=== PATIENT | male | born 1960 | race Caucasian/White ===

== ENCOUNTER 2019-05-21 07:33 | Outpatient (CLI) | payer OTHER, SELFPAY ==
--- NOTE | 2019-05-21 07:44 | EST_ITS ---
Patient Info Name: Pratik Alvarez Age: 58 years : 1960 Gender: Male Ht: 72 in Wt: 168 lbs BSA: 1.97 m2 Exam Date: 05/21/2019 8:33 AM Exam Location: [facility] Stress Patient Status: Outpatient Admit Date: 05/21/2019 Staff Ordering Physician: Scott Patel DO Attending Provider: Scott Patel DO Exercise Technologist: Emy Cason RDCS Exercise Physician: Scott Patel DO Exam Type: CA stress test treadmill Study Info Indications R06.09 - Other forms of dyspnea A treadmill exercise stress test was performed. Summary 1. 1. Negative Joe exercise stress test for ischemic ST changes by ECG criteria. However, he achieved only 76% MPHR for age group which reduces sensitivity of the test. 2. 2. Good functional capacity, achieving 12 METs of workload. 3. 3. Mild chronotropic incompetence, achieving maximum HR of 122 bpm. 4. 4. Appropriate HR recovery at 1 minute post exercise. 5. 5. No imaging with stress testing. 6. 6. Patient informed of the above results. Protocol: Joe Stress ECG Details Stage: REST Duration (min): 1 min : 2 sec Speed (mph): 0.0 Grade (%): 0 HR (bpm): 62 SBP (mmHg): 132 DBP (mmHg): 88 METS: --- Stage: REST Duration (min): 5 min : 33 sec Speed (mph): 0.0 Grade (%): 0 HR (bpm): 67 SBP (mmHg): 132 DBP (mmHg): 88 METS: --- Stage: STAGE 1 Duration (min): 1 min : 0 sec Speed (mph): 1.7 Grade (%): 10 HR (bpm): 89 SBP (mmHg): 132 DBP (mmHg): 88 METS: --- Stage: STAGE 1 Duration (min): 2 min : 0 sec Speed (mph): 1.7 Grade (%): 10 HR (bpm): 97 SBP (mmHg): 132 DBP (mmHg): 88 METS: --- Stage: STAGE 1 Duration (min): 3 min : 0 sec Speed (mph): 1.7 Grade (%): 10 HR (bpm): 95 SBP (mmHg): 174 DBP (mmHg): 83 METS: --- Stage: STAGE 2 Duration (min): 1 min : 0 sec Speed (mph): 2.5 Grade (%): 12 HR (bpm): 100 SBP (mmHg): 174 DBP (mmHg): 83 METS: --- Stage: STAGE 2 Duration (min): 2 min : 0 sec Speed (mph): 2.5 Grade (%): 12 HR (bpm): 102 SBP (mmHg): 166 DBP (mmHg): 86 METS: --- Stage: STAGE 2 Duration (min): 3 min : 0 sec Speed (mph): 2.5 Grade (%): 12 HR (bpm): 103 SBP (mmHg): 166 DBP (mmHg): 86 METS: --- Stage: STAGE 3 Duration (min): 1 min : 0 sec Speed (mph): 3.4 Grade (%): 14 HR (bpm): 110 SBP (mmHg): 160 DBP (mmHg): 96 METS: --- Stage: STAGE 3 Duration (min): 2 min : 0 sec Speed (mph): 3.4 Grade (%): 14 HR (bpm): 111 SBP (mmHg): 160 DBP (mmHg): 96 METS: --- Stage: STAGE 3 Duration (min): 3 min : 0 sec Speed (mph): 3.4 Grade (%): 14 HR (bpm): 114 SBP (mmHg): 183 DBP (mmHg): 98 METS: --- Stage: STAGE 4 Duration (min): 1 min : 0 sec Speed (mph): 4.2 Grade (%): 16 HR (bpm): 122 SBP (mmHg): 183 DBP (mmHg): 98 METS: --- ---
--- NOTE | 2019-05-21 07:44 | ECHO_ITS ---
Patient Info Name: Pratik Alvarez Age: 58 years : 1960 Gender: Male Ht: 72 in Wt: 168 lbs BSA: 1.97 m2 HR: 67 bpm BP: 138 / 92 mmHg Technical Quality: Good Exam Date: 05/21/2019 7:49 AM Exam Location: [facility] Pulmonary Patient Status: Outpatient Admit Date: 05/21/2019 Staff Ordering Physician: Scott Patel DO Configuration Management Specialist: Emy Cason RDCS Attending Provider: Scott Patel DO Referring Physician: Jorge WADE; Exam Type: CA echo doppler color flow Study Info Indications R06.09 - Other forms of dyspnea Complete two-dimensional, color flow and Doppler transthoracic echocardiogram is performed. Summary 1. Left ventricular chamber dimension is normal. 2. Ventricular septum is sigmoid shaped. 3. Left ventricular systolic function is normal, estimated at 65-70%. 4. The left ventricular diastolic function is grade II diastolic dysfunction. 5. E/e' 9 is minimally elevated. 6. There is mild aortic valve sclerosis. 7. There is mild mitral valve regurgitation. 8. There is trace tricuspid valve regurgitation. 9. No pulmonary hypertension, estimated pulmonary arterial systolic pressure is 37 mmHg. 10. Dilated inferior vena cava with >50% collapse upon inspiration consistent with elevated right atrial pressure, 10 mmHg. Left Ventricle E/e' 9 is minimally elevated. Ventricular septum is sigmoid shaped. Left ventricular chamber dimension is normal. Left ventricular systolic function is normal, estimated at 65-70%. The left ventricular diastolic function is grade II diastolic dysfunction. Right Ventricle Right ventricular chamber dimension is normal. Right ventricular systolic function is normal. Left Atria Left atrial chamber dimension is normal. Right Atria Right atrial chamber dimension is normal. Aortic Valve The aortic valve is trileaflet. There is mild aortic valve sclerosis. There is no aortic valve stenosis. There is no aortic valve regurgitation. Pulmonic Valve There is no pulmonic regurgitation. Mitral Valve There is no mitral valve stenosis. There is mild mitral valve regurgitation. Tricuspid Valve There is trace tricuspid valve regurgitation. No pulmonary hypertension, estimated pulmonary arterial systolic pressure is 37 mmHg. Pericardium/Pleural There is no pericardial effusion. Inferior Vena Cava Dilated inferior vena cava with >50% collapse upon inspiration consistent with elevated right atrial pressure, 10 mmHg. Aorta The aortic root size at the sinus of Valsalva is normal. Left Ventricular Outflow Tract Name Value Normal LVOT 2D LVOT Diameter 2.2 cm LVOT Doppler LVOT Peak Gradient 9 mmHg LVOT Mean Gradient 4 mmHg LVOT VTI 23 cm LVOT VTI/AV VTI Ratio 0.9 LVOT Stroke Volume 92 ml LVOT CO 5.7 l/min LVOT CI 2.9 l/min/m2 Pulmonic Valve Name
== END 2019-05-21 07:34 | disposition home or self-care (01) ==
PROVIDERS: PCP Internal Medicine; Visit Provider Internal Medicine Cardiovascular Disease
DX: R06.09 Other forms of dyspnea (principal)
CPT/HCPCS: 93017; 93306

== ENCOUNTER 2022-10-01 13:34 | Outpatient (CLI) | payer OTHER, SELFPAY ==
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
[2022-10-01 13:50] LABS: Basophils Absolute Auto 0.14 K/mm3 (0.00-0.10); Basophils Percent Auto 1.7 % (0.0-1.0); Eosinophils Absolute Auto 0.04 K/mm3 (0.02-0.50); Eosinophils Percent Auto 0.5 % (1.0-6.0); Hematocrit 43.2 % (40.0-54.0); Immature Granulocyte Absolute 0.02 K/mm3 (0.00-0.00); Immature Granulocyte Percent A 0.2 % (0.0-0.0); Lymphocytes Absolute Auto 2.31 K/mm3 (1.10-4.50); Lymphocytes Percent Auto 27.8 % (18.0-42.0); Mean Corpuscular HGB Conc 32.4 g/dL (32.0-36.0); Mean Corpuscular Hemoglobin 31.3 pg (27.0-31.0); Mean Corpuscular Volume 96.6 fL (78.0-102.0); Mean Platelet Volume 8.6 fl (8.7-11.0); Monocytes Absolute Auto 0.57 K/mm3 (0.10-0.90); Monocytes Percent Auto 6.9 % (2.0-11.0); Neutrophils Absolute Auto 5.2 K/mm3 (1.7-7.2); Neutrophils Percent Auto 62.9 % (50.0-70.0); Platelet Count Result 371 K/mm3 (150-420); Red Blood Count 4.47 M/mm3 (4.70-6.10); Red Cell Distribution Width 12.3 % (11.6-14.4); White Blood Count 8.3 K/mm3 (4.8-10.8)
[2022-10-01 13:53] LABS: Appearance Urine Clear (Clear); Bilirubin Urine 1+ (Negative); Blood Urine 1+ (Negative); Color Urine Yellow (Yellow); Glucose Urine UA Negative (Negative); Ketones Urine Negative (Negative); Leukocyte Esterase Ur Negative (Negative); Nitrate Urine Negative (Negative); Protein Urine Trace (Negative); Specific Grav Ur >= 1.030 (1.010-1.020); Urobilinogen Urine 0.2 mg/dL (0.2-1.0)
[2022-10-01 14:07] LABS: Add Urine Microscopic? NO; Bacteria Urine Trace /hpf; Mucus Urine Few /lpf; Squamous Epithelial Cell Urine Rare /hpf (Few); WBC Urine None seen /hpf (0-3)
[2022-10-01 14:45] LABS: Alanine Aminotransferase 27 U/L (16-63); Albumin Level 4.2 g/dL (3.4-5.0); Alkaline Phosphatase 70 U/L (46-116); Anion Gap 8 mmol/L (8-16); Aspartate Amino Transferase 24 U/L (15-37); Bilirubin,Total 0.6 mg/dL (0.00-1.00); Blood Urea Nitrogen 22 mg/dL (7-18); Calcium 9.6 mg/dL (8.5-10.1); Carbon Dioxide 28 mmol/L (21-32); Chloride 106 mmol/L (98-108); Cholesterol 171 mg/dL (0-200); Estimated Glomerular Filt Rate > 60; Glucose 102 mg/dL (70-99); HDL Direct 69 mg/dL (40-60); LDL Cholesterol Calculated 92 mg/dL (<130); Osmolality Calculated 297 mOsm/kg (285-295); Potassium 4.4 mmol/L (3.5-5.1); Sodium 142 mmol/L (136-145); Thyroid Stimulating Hormone 0.56 uIU/mL (0.36-3.74); Total Protein 7.3 g/dL (6.4-8.2); Triglycerides 50 mg/dL (0-150)
[2022-10-01 14:47] LABS: MALB Creatinine Ratio 23.1 mg/g (0-30); Microalbumin Urine Random 76.9 mg/L
== END 2022-10-01 13:35 | disposition home or self-care (01) ==
LOC: CHSLAB 13:36
PROVIDERS: PCP Family Medicine; Visit Provider Family Medicine
DX: I10 Essential (primary) hypertension (principal); M43.12 Spondylolisthesis, cervical region; M50.322 Other cervical disc degeneration at C5-C6 level
CPT/HCPCS: 36415; 72050; 80053; 80061; 81003; 82043; 84443; 85025

== ENCOUNTER 2022-10-27 09:32 | Outpatient (CLI) | payer OTHER, SELFPAY ==
[2022-10-27 09:43] LABS: Appearance Urine Clear (Clear); Bilirubin Urine Negative (Negative); Blood Urine Trace-Intact (Negative); Color Urine Yellow (Yellow); Glucose Urine UA Negative (Negative); Ketones Urine Negative (Negative); Leukocyte Esterase Ur Negative (Negative); Nitrate Urine Negative (Negative); Protein Urine Trace (Negative); Specific Grav Ur 1.025 (1.010-1.020); Urobilinogen Urine 0.2 mg/dL (0.2-1.0); pH Urine 6.5 (5.0-8.0)
[2022-10-27 09:56] LABS: Add Urine Microscopic? YES
[2022-10-27 09:57] LABS: Bacteria Urine Trace /hpf; Other Sediment Urine Spermatazoa /hpf
== END 2022-10-27 09:33 | disposition home or self-care (01) ==
LOC: CHSLAB 09:35
PROVIDERS: PCP Family Medicine; Visit Provider Family Medicine
DX: R31.9 Hematuria, unspecified (principal)
CPT/HCPCS: 81001; 88112

== ENCOUNTER 2023-09-30 13:39 | Outpatient (CLI) | payer OTHER, SELFPAY ==
--- NOTE | ~2023-09-30 | XR_ITS ---
EXAMINATION: XR_[id number]_CR DATE: 09/30/2023 13:58 INDICATION: Neck pain. TECHNIQUE: 3 views of cervical spine were obtained. COMPARISON: Cervical spine radiograph 10/01/2022 FINDINGS: There is 3 degrees dextrocurvature of cervical spine. There is 3 mm anterolisthesis of C4 o n C5 and 2 mm retrolisthesis of C5 on C6. Vertebral body heights are normal. There is mildly decrease d disc height at C4-C5, severely decreased disc height at C5-C6, and mildly decreased disc height at C6-C7. There is multilevel facet joint osteoarthritis, severe on the left at C4-C5. There is mild wang tral canal stenosis at C4-C5 and C5-C6. No prevertebral soft tissue swelling. IMPRESSION: 1. Severe cervical spondylosis, stable from 10/01/2022. Reviewed, dictated and finalized at location E.
== END 2023-09-30 13:40 | disposition home or self-care (01) ==
LOC: CHSLAB 13:41 → CHSIMG 13:51
PROVIDERS: PCP Family Medicine; Visit Provider Family Medicine
DX: I10 Essential (primary) hypertension (principal); J45.20 Mild intermittent asthma, uncomplicated; M54.2 Cervicalgia
CPT/HCPCS: 72040

== ENCOUNTER 2023-10-01 09:15 | Outpatient (CLI) | payer OTHER, SELFPAY ==
[2023-10-01 09:40] LABS: Basophils Absolute Auto 0.13 K/mm3 (0.00-0.10); Eosinophils Percent Auto 1.5 % (1.0-6.0); Hematocrit 43.1 % (40.0-54.0); Immature Granulocyte Absolute 0.01 K/mm3 (0.00-0.00); Immature Granulocyte Percent A 0.2 % (0.0-0.0); Lymphocytes Absolute Auto 2.42 K/mm3 (1.10-4.50); Lymphocytes Percent Auto 37.2 % (18.0-42.0); Mean Corpuscular HGB Conc 32.5 g/dL (32-36); Mean Corpuscular Hemoglobin 31.3 pg (27.0-31.0); Mean Corpuscular Volume 96.2 fL (78.0-102.0); Mean Platelet Volume 8.8 fl (8.7-11.0); Monocytes Absolute Auto 0.44 K/mm3 (0.10-0.90); Monocytes Percent Auto 6.8 % (2.0-11.0); Neutrophils Absolute Auto 3.41 K/mm3 (1.70-7.20); Neutrophils Percent Auto 52.3 % (50.0-70.0); Platelet Count Result 339 K/mm3 (150-420); Red Blood Count 4.48 M/mm3 (4.70-6.10); Red Cell Distribution Width 12.3 % (11.6-14.4); White Blood Count 6.5 K/mm3 (4.8-10.8)
[2023-10-01 09:52] LABS: MALB Creatinine Ratio 20.2 mg/g (0-30)
[2023-10-01 09:59] LABS: Alanine Aminotransferase 21 U/L (16-63); Albumin Level 3.9 g/dL (3.4-5.0); Anion Gap 5 mmol/L (4-12); Aspartate Amino Transferase 28 U/L (15-37); Bilirubin,Total 0.3 mg/dL (0.00-1.00); Blood Urea Nitrogen 11 mg/dL (7-18); Calcium 8.6 mg/dL (8.5-10.1); Carbon Dioxide 31 mmol/L (21-32); Chloride 104 mmol/L (98-108); Cholesterol 174 mg/dL (0-200); Estimated Glomerular Filt Rate > 60; Glucose 101 mg/dL (70-99); HDL Direct 57 mg/dL (40-60); LDL Cholesterol Calculated 107 mg/dL (<130); Osmolality Calculated 289 mOsm/kg (285-295); Potassium 3.9 mmol/L (3.5-5.1); Sodium 140 mmol/L (136-145); Thyroid Stimulating Hormone 0.58 uIU/mL (0.36-3.74); Triglycerides 48 mg/dL (0-150)
[2023-10-01 10:18] LABS: Alkaline Phosphatase < 10 U/L (46-116)
[2023-10-01 10:19] LABS: Creatinine Urine 189.11 mg/dL (40-278); Microalbumin Urine Random 38.3 mg/L
[2023-10-01 18:04] LABS: Appearance Urine Clear (Clear); Bilirubin Urine Negative (Negative); Color Urine Yellow (Yellow); Glucose Urine UA Negative (Negative); Ketones Urine Negative (Negative); Leukocyte Esterase Ur Negative (Negative); Nitrate Urine Negative (Negative); Protein Urine Negative (Negative); Specific Grav Ur >= 1.030 (1.010-1.020); Urobilinogen Urine 0.2 mg/dL (0.2-1.0)
[2023-10-01 18:29] LABS: Add Urine Microscopic? YES; Amorphous Sediment Urine Few; Blood Urine Trace-Lysed (Negative); Mucus Urine Heavy /lpf
== END 2023-10-01 09:16 | disposition home or self-care (01) ==
PROVIDERS: PCP Family Medicine; Visit Provider Family Medicine
DX: I10 Essential (primary) hypertension (principal)
CPT/HCPCS: 36415; 80053; 80061; 81001; 82043; 84443; 85025

== ENCOUNTER 2023-10-04 10:59 | Outpatient (CLI) | payer OTHER, SELFPAY | END 2023-10-04 11:00 | disposition home or self-care (01) | LOC: CHSCARD 11:00 | PROVIDERS: PCP Family Medicine; Visit Provider Family Medicine | DX: J45.20 Mild intermittent asthma, uncomplicated (principal); M54.2 Cervicalgia | CPT/HCPCS: 94060; 94726; 94729 ==

== ENCOUNTER 2023-12-01 07:53 | Outpatient (CLI) | payer MEDICARE, SELFPAY ==
--- NOTE | ~2023-12-01 | CT_ITS ---
EXAMINATION: CT lung screening DATE: 12/01/2023 08:17 INDICATION: PERSONAL HX OF NICOTINE,SOB,COUGH,COPD TECHNIQUE: Computed tomography (CT) of the chest was performed without intravenous contrast. Addition al 3D reconstructions utilizing coronal maximum intensity projection (MIP) were performed. Automated exposure control and iterative reconstruction technique were employed. The dose-length product was 82 .79 mGy-cm. COMPARISON: None FINDINGS: Mild emphysema. Prominent calcified left upper lobe nodule and calcified left hilar lymph node consis tent with old granulomatous disease. No other noncalcified pulmonary nodules, pneumonia, pulmonary ed ceci or pleural effusion. Heart size is normal. Atherosclerotic coronary artery calcium. No pericardia l effusion. Thoracic aorta is normal in caliber. No pathologically enlarged thoracic lymphadenopathy. And visualized upper abdomen is unremarkable. Mild thoracic spondylosis. IMPRESSION: 1. Lung-RADS category 1: Negative. Continue annual screening with noncontrast low-dose chest CT in 12 months. Reviewed, dictated and finalized at location A. IMPRESSION: 1. Lung-RADS category 1: Negative. Continue annual screening with noncontrast l ow-dose chest CT in 12 months.
== END 2023-12-01 07:54 | disposition home or self-care (01) ==
LOC: CHSIMG 07:54
PROVIDERS: PCP Family Medicine; Visit Provider Family Medicine
DX: Z12.2 Encounter for screening for malignant neoplasm of respiratory organs (principal); Z87.891 Personal history of nicotine dependence
CPT/HCPCS: 71271

== ENCOUNTER 2025-01-22 14:42 | Outpatient (CLI) | payer MEDICARE, MEDICAID, SELFPAY ==
[2025-01-22 15:14] LABS: Hematocrit 44.8 % (37.0-46.0); Hemoglobin 15.0 g/dL (12.4-15.3); Mean Corpuscular HGB Conc 33.5 g/dL (32-36); Mean Corpuscular Hemoglobin 31.8 pg (27.0-31.0); Mean Corpuscular Volume 95.1 fL (78.0-102.0); Platelet Count Result 402 K/mm3 (150-420); Red Blood Count 4.71 M/mm3 (4.70-6.10); White Blood Count 8.9 K/mm3 (4.8-10.8)
[2025-01-22 15:15] LABS: Add Urine Microscopic? YES; Appearance Urine Clear (Clear); Glucose Urine UA Negative (Negative); Leukocyte Esterase Ur Negative (Negative); Nitrate Urine Negative (Negative); Specific Grav Ur >= 1.030 (1.010-1.020)
[2025-01-22 15:37] LABS: Alanine Aminotransferase 21 U/L (6-50); Albumin Level 4.8 g/dL (3.5-5.1); Alkaline Phosphatase 61 U/L (38-126); Anion Gap 6 mmol/L (4-12); Aspartate Amino Transferase 39 U/L (17-59); Bilirubin,Total 0.5 mg/dL (0.2-1.3); Blood Urea Nitrogen 19 mg/dL (9-20); Calcium 10.0 mg/dL (8.4-10.2); Carbon Dioxide 33 mmol/L (22-30); Chloride 104 mmol/L (98-107); Estimated Glomerular Filt Rate > 60; Glucose 94 mg/dL (65-110); Osmolality Calculated 298 mOsm/kg (285-295); Potassium 4.7 mmol/L (3.4-5.0); Sodium 143 mmol/L (137-145); Total Protein 8.8 g/dL (6.3-8.2)
[2025-01-22 15:43] LABS: MALB Creatinine Ratio 30.6 mg/g (0-30)
[2025-01-22 16:07] LABS: Thyroid Stimulating Hormone 1.300 uIU/mL (0.465-4.680)
[2025-01-22 16:26] LABS: Vitamin B12 544.0 pg/mL (239-931)
--- OUTSIDE RECORDS SUMMARY | 2025-01-22 16:38 | XMS_ITS | Encounter Summary ---
Author Organization [facility] Address [address] [place] [address] Phone Care Team Providers Care Project Manager Retail Name Role Phone Anton Minor MD Unavailable [phone] Vijay Dave MD Unavailable Unavailable Maurice MEEKS MD, Jordan Chapa Unavailable [phone] Anton Hernández MD Primary Care Provider [phone] Nancy Soto RN Unavailable UnavailUzma Hodge RN Unavailable Unavailable Reason for Visit * Reason Onset Date Comments multiple questions and fyis 06/05/2020 Encounter Details Date Type Department Care Team (Late st Contact Info) Description 06/05/2020 Telephone [facility] [address] [place] [address] Anton Hernández MD [address] [address] multiple questions and fyis Social History Tobacco Use Types Packs/Day Years Used Date Smoking Tobacco: Former Cigarettes Smokeless Tobacco: Never Alcohol Use Standard Drinks/Week Comments Never 0 (1 standard drink = 0.6 oz pur e alcohol) AUDIT-C Answer Date Recorded Frequency of Alcohol Consumption Never 08/11/2018 Average Number of Drinks Not on file 019 Frequency of Binge Drinking Not on file 06/2018 PHQ-2 Answer Date Recorded Total Score - Questions 1-9 0 07/2020 Sexually Active Control Partners Comments Not Currently Sex and Gender Information Value Date Recorded Sex Assigned at Not on file Legal Sex Male 2:25 PM CDT Gender Identity Not on file Sexual Orientation Not on file COVID-19 Exposure Response Date Recorded In the last month, have you been in contact with someone who was confirmed or suspected to have Coronavirus / COVID-19? No / Unsure 05/15/2020 2:16 PM BODY MASKER documented as of this encounter Miscellaneous Notes * Telephone Encounter - Jennifer Aguilar RN - 06/06/2020 2:00 PM BODY MASKER Pt called back at this time. He is talking very fast. He wanted to update us that he had to reschedule his MRI for June 16 at noon. He will be take Valium 10 mg one hour before the MRI Saw plastic surgeon today for bumps on head and has plans to surgically excise those. I gave pt the information per Dr Hernández as below. He verbalized understanding. FU appt made for July 31, 2020 at 1000. MASKER * Telephone Encounter - Niki Heart RN - 06/06/2020 12:39 PM BODY MASKER Call placed to patient. Message left to call office back. MASKER * Telephone Encounter - Anton Hernández MD - 06/05/2020 3:36 PM CST You can take both mj and vicodin together as long as the amounts are reasonable You need office visit in 3 three months MASKER * Telephone Encounter - Carina Mueller RN - 06/05/2020 3:01 PM CST What are the affects of marijuana and Vicodin taken together? When does he need to see you again? Pt was not able to do the mri test today at [facility] . His arms clenched up tight against him. Dr Bartlett has given him diazepam 10 mg to take one hour before the next mri test. Pt states he does not think it will help. Pt will be seeing a plastic surgeon concerning the bumps on his head tomorrow. Has first covid shot scheduled for June 13. MASKER documented in this encounter Plan of Treatment Not on file documented as of this encounter Visit Diagnoses Not on filedocumented in this encounter Additional Health Concerns Assessment Noted Time PHQ-9 Depression Total Score: 0 05/15/19 2:28 PM BODY MASKER documented as of this encounter Care Teams Project Manager Retail Relationship Specialty Start Date End Date Anton Hernández MD [address] [facility] [address] [place] [address] PCP - General Family Medicine 10/10/18 05/31/22 Antno Minor MD [address] [facility] [address] [place] [address] Neurologist Neurology 08/16/18 Vijay Dave MD [address] [facility] [address] [place] [address] [employer] Pulmonary Disease 08/16/18 Jordan Richards III, MD [address] [facility] [address] [place] [address] Surgeon Plastic Surgery 08/16/18 Nancy Soto, [place] Mortgage Lender 02/02/19 10/05/20 Uzma Ashby RN [place] Mortgage Lender 10/06/20 11/04/20 documented as of this encounter
--- OUTSIDE RECORDS SUMMARY | 2025-01-22 16:38 | XMS_ITS | Encounter Summary ---
Author Organization [facility] Address [address] [place] [address] [place] [address] Care Team Providers Care Soil Science Technical Officer Name Role Phone Anton Hernández MD Primary Care Provider [phone] Reason for Visit * Reason Onset Date Comments Future Appointment 10/03/2018 Encounter Details Date Type Department Care Team (Late st Contact Info) Description 10/03/2018 Telephone [facility] [address] [place] [address] Melba Dover MD [address] [place] [id number] Future Appointment Social History Tobacco Use Types Packs/Day Years Used Date Smoking Tobacco: Never Assessed Sex and Gender Information Value Date Recorded Sex Assigned at Not on file Legal Sex Male 9:22 AM CDT Gender Identity Not on file Sexual Orientation Not on file documented as of this encounter Miscellaneous Notes * Telephone Encounter - Delia Casas - 10/03/2018 3:38 PM CDT Pt called and has a terrible headache. He can't wait 3 months to see . Pt would like to talk to someone in the office. Thanks Delia [facility] Associate Director documented in this encounter Plan of Treatment Not on file documented as of this encounter Visit Diagnoses Not on filedocumented in this encounter Care Teams Soil Science Technical Officer Relationship Specialty Start Date End Date Anton Hernández MD PCP - General 10/02/18 documented as of this encounter
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
--- OUTSIDE RECORDS SUMMARY | 2025-01-22 16:38 | XMS_ITS | Encounter Summary ---
Author Organization [facility] Address [address] [facility] [place] [address] Phone Care Team Providers Care Insights Analyst Name Role Phone Anton Minor MD Unavailable [phone] Vijay Dave MD Unavailable Unavailable Maurice MEEKS MD, Jordan Eduard Unavailable [phone] Anton Hernández MD Primary Care Provider [phone] Reason for Visit * Reason Comments Medication Refill Encounter Details Date Type Department Care Team (Late st Contact Info) Description 12/01/2021 Refill [facility] - Family Medicine [facility] [address] [place] [address] Anton Hernández MD #[address] [address] Medication Refill Social History Tobacco Use Types Packs/Day Years [...] Recorded Total Score - Questions 1-9 0 11/2021 Sexually Active Control Partners Comments Not Currently Sex and Gender Information Value Date Recorded Sex Assigned at Not on file Legal Sex Male 2:25 PM CDT Gender Identity Not on file Sexual Orientation Not on file documented as of this encounter Miscellaneous Notes * Telephone Encounter - Henry, Porsche L, RN - 12/01/2021 11:37 AM CDT Refill request too soon. documented in this encounter Plan of Treatment Not on file documented as of this encounter Visit Diagnoses Not on filedocumented in this encounter Additional Health Concerns Assessment Noted Time PHQ-9 Depression Total Score: 0 08/06/19 4:17 PM CDT documented as of this encounter Care Teams Insights Analyst Relationship Specialty Start Date End Date Anton Hernández MD #[address] [facility] [address] [place] [address] PCP - General Family Medicine 10/10/18 05/31/22 Anton Minor MD [address] [facility] [address] [place] [address] Neurologist Neurology 08/16/18 Vijay Dave MD [address] [facility] [address] [place] [address] Teaching Fellow Pulmonary Disease 08/16/18 Jordan Richards III, MD [address] [facility] [address] [place] [address] Surgeon Plastic Surgery 08/16/18 documented as of this encounter
--- OUTSIDE RECORDS SUMMARY | 2025-01-22 16:38 | XMS_ITS | Encounter Summary ---
Author Organization [facility] Address [address] [facility] [place] [address] Phone Care Team Providers Care Personnel Clerk Name Role Phone Anton Minor MD Unavailable [phone] Vijay Dave MD Unavailable Unavailable Maurice MEEKS MD, Jordan Chapa Unavailable [phone] Anton Hernández MD Primary Care Provider [phone] Nancy Soto RN Unavailable UnavailUzma Hodge RN Unavailable Unavailable Reason for Visit * Reason Comments Medication Refill Encounter Details Date Type Department Care Team (Late st Contact Info) Description 09/30/2020 Refill [facility] - Family Medicine [facility] [address] [place] [id number] Anton Hernández MD #[address] [address] Medication Refill Social History Tobacco Use Types [...] Recorded Total Score - Questions 1-9 0 07/11 Sexually Active Control Partners Comments Not Currently Sex and Gender Information Value Date Recorded Sex Assigned at Not on file Legal Sex Male 2:25 PM CDT Gender Identity Not on file Sexual Orientation Not on file documented as of this encounter Miscellaneous Notes * Telephone Encounter - Pauline Henderson RN - 10/01/2020 2:20 PM CDT Patient received a 90 days supply 09/30/20 per [place] PDMP/MEDD from this pharmacy - refill too soon documented in this encounter Plan of Treatment Not on file documented as of this encounter Visit Diagnoses Not on filedocumented in this encounter Additional Health Concerns Assessment Noted Time PHQ-9 Depression Total Score: 0 08/06/19 4:17 PM CDT documented as of this encounter Care Teams Personnel Clerk Relationship Specialty Start Date End Date Anton Hernández MD #[address] [address] PCP - General Family Medicine 10/10/18 05/31/22 Anton [place] MD [address] [facility] [address] [place] [address] Neurologist Neurology 08/16/18 Vijay Dave MD [address] [facility] [address] [place] [address] Veneer Jointer Offbearer Pulmonary Disease 08/16/18 Jordan Richards III, MD [address] [facility] [address] [place] [address] Surgeon Plastic Surgery 08/16/18 Nancy Soto, [place] Cle[place] 02/02/19 10/05/20 Uzma Ashby RN [place] Cleater 10/06/20 11/04/20 documented as of this encounter
--- OUTSIDE RECORDS SUMMARY | 2025-01-22 16:38 | XMS_ITS | Encounter Summary ---
Author Organization [facility] Address [address] [place] [address] Phone Care Team Providers Care Cobbler Mckay Name Role Phone Anton Minor MD Unavailable [phone] Vijay Dave MD Unavailable Unavailable Maurice MEEKS MD, Jordan Chapa Unavailable [phone] Anton Hernández MD Primary Care Provider [phone] Nancy Soto RN Unavailable UnavailUzma Hodge RN Unavailable Unavailable Reason for Visit * Reason Comments Medication Refill Encounter Details Date Type Department Care Team (Late st Contact Info) Description 02/14/2020 Refill [facility] - Family Medicine [facility] [address] [place] [address] Anton Hernández MD [address] [address] Medication Refill Social History Tobacco Use Types [...] on file 06/2018 PHQ-2 Answer Date Recorded PHQ-2 Score 0 12/12/2018 Sexually Active Control Partners Comments Not Currently Sex and Gender Information Value Date Recorded Sex Assigned at Not on file Legal Sex Male 2:25 PM CDT Gender Identity Not on file Sexual Orientation Not on file documented as of this encounter Miscellaneous Notes * Telephone Encounter - Anton Hernández MD - 02/14/2020 11:03 AM CST Prescription pending signature LOADER * Telephone Encounter - Angelina Lowe RN - 02/14/2020 10:20 AM CST Medication failed the protocol, provider to review and approve the medication order if appropriate. UDS okay on 01/10/2020, Last OV 01/10/2020, next 04/16/2020. Requested Prescriptions Pending Prescriptions Disp Refills albuterol 108 (90 Base) MCG/ACT Aerosol Solution [Pharmacy Med Name: ALBUTEROL HFA 90 MCG INHALER (TX] 17 g Sig: INHALE TWO PUFFS BY MOUTH EVERY SIX HOURS NEEDED FOR WHEEZING Pulmonology: Beta Agonists - Albuterol & Levalbuterol Failed - 02/14/2020 9:22 AM Failed - May refill 2 inhalers, 0 refills one time since last office visit. May refill #50 nebulizer vials, 0 refills for albuterol or #48 vials, 0 refills for Xopenex one time since last office visit. Passed - Valid encounter within last 6 months Past Office Visits Recent Outpatient Visits 1 month ago Neck pain [facility] Family Medicine - Anton Bush MD 3 months ago Neck pain [facility] Family [facility] - Anton Bush MD 5 months ago Pulmonary emphysema, unspecified emphysema type (HCC) [facility] - Anton Bush MD 9 months ago [facility] - Anton Bush MD 1 year ago Benign essential HTN [facility] - Carmita Lala APN, SLACKMAN Upcoming Appointments Future Appointments In 1 week [facility] RESP [facility] In 1 week [facility] RESP [facility]1 [facility] In [facility] Diagnostic Radiology, [facility] In 3 weeks Jonh Mckeon MD [facility] PULMONOLOGY, [facility] In 2 months Anton Hernández MD [facility] [place] CLAY HOUSE WORKER - Recent and Past Visits Recent Visits Date Type Provider Dept 01/10/20 Office Visit Anton Hernández MD [facility] 10/25/19 Office Visit Anton Hern[facility]dez MD [facility] 09/04/19 Telemedicine Anton Hernández MD [facility] 05/04/19 Office Visit Anton Hernández MD [facility] 02/02/19 Office Visit Carmita Almeida APN, MARLIN [facility] Showing recent visits within past 460 days with a meds authorizing provider and meeting all other requirements Future Appointments Date Type Provider Dept 04/16/20 Appointment Anton [facility] MD [facility] Showing future appointments within next 90 days with a meds authorizing provider and meeting all other requirements Passed - Last BP in normal range BP Readings from Last 1 Encounters: 01/10/20 124/70 HYDROcodone-acetaminophen (NORCO) 5-325 MG Tablet [Pharmacy Med Name: HYDROC- ACETAMIN 5-325MG TAB] 30 Tab Sig: TAKE ONE TABLET BY MOUTH EVERY FOUR HOURS NEEDED FOR PAIN Not Delegated - Analgesics: Opioid Agonist Combinations Failed - 02/14/2020 9:22 AM Failed - This refill cannot be delegated Passed - Valid encounter within last 6 months Past Office Visits Recent Outpatient Visits 1 month ago Neck pain [facility] Anton Bush MD 3 months ago Neck pain [facility] Anton Bush MD 5 months ago Pulmonary emphysema, unspecified emphysema type (HCC) [facility] Anton Bush MD 9 months ago Benign essential HTN [facility] Anton Grigsby MD 1 year ago [facility]ign essential [facility], [place] Upcoming Appointments Future Appointments In 1 week [facility] RESP ROOM1 [facility], [facility] In 1 week [facility] RESP ROOM1 [facility] Respiratory Therapy, [facility] In 1 week [facility] Diagnostic Radiology, [facility] In 3 weeks Jonh Mckeon MD [facility] PULMON[facility], [facility] In 2 months Anton Hernández MD [facility] - Family Medicine [facility] CLAY HOUSE WORKER - Recent and Past Visits Recent Visits Date Type Provider Dept 01/10/20 Office Visit Anton Hernández MD [facility] 10/25/19 Office Visit Anton Hernández MD [facility] 09/04/19 Telemedicine Anton Hernández MD [facility] 05/04/19 [facility] 02/02/19 Office Visit Carmita Almeida APN, SLACKMAN [facility] Showing recent visits within past 460 days with a meds authorizing provider and meeting all other requirements Future Appointments Date Type Provider Dept 04/16/20 Appointment Anton Hern[facility]dez MD [facility] Showing future appointments within next 90 days with a meds authorizing provider and meeting all other requirements LOADER documented in this encounter Plan of Treatment Not on file documented as of this encounter Visit Diagnoses Diagnosis Pulmonary emphysema, unspecified emphysema type documented in this encounter Additional Health Concerns Assessment Noted Time PHQ-9 Depression Total Score: 0 05/04/19 20 9:30 AM CORE LOADER documented as of this encounter Care Teams Cobbler Mckay Relationship Specialty Start Date End Date Anton Hernández MD [address] [address] PCP - General Family Medicine 10/10/18 05/31/22 Anton Minor MD [address] [place] [address] [address] [place] [address] Neurologist Neurology 08/16/18 Vijay Dave MD [address] [place] [address] [address] [place] [address] Structural Analysis Engineer Pulmonary Disease 08/16/18 Jordan Richards III, MD [address] [facility] [address] [place] [address] Surgeon Plastic Surgery 08/16/18 Nancy Soto, [place]SM[place] [employer] 02/02/19 10/05/20 Uzma Ashby RN [place] [employer] 10/06/20 11/04/20 documented as of this encounter
--- OUTSIDE RECORDS SUMMARY | 2025-01-22 16:38 | XMS_ITS | Encounter Summary ---
Author Organization [facility] Address [facility] [place] [address] Care Team Providers Care Medical Claims Processor Name Role Phone Anton Hernández MD Primary Care Provider [phone] Encounter Details Date Type Department Care Team (Late st Contact Info) Description 01/03/2019 Telephone [facility] [address] [place] [address] Melba Dover MD [address] [place] [id number] Social History Tobacco Use Types Packs/Day Years Used Date Smoking Tobacco: Former Cigarettes Smokeless Tobacco: Never Alcohol Use Standard Drinks/Week Comments Not Currently 0 (1 standard drink = 0.6 oz pur e alcohol) Sex and Gender Information Value Date Recorded Sex Assigned at Not on file Legal Sex Male 9:22 AM CDT Gender Identity Not on file Sexual Orientation Not on file documented as of this encounter Patient Instructions * Patient Instructions* Raulito Guido - 01/03/2019 9:46 AM CDT Current Provider name:ADI Reason for call: PT IN GREAT PAIN, HAS DIABETIC CONCERNS, NEEDS TO TALK TO CLINIC Patient Call Back number: [phone] documented in this encounter Plan of Treatment Not on file documented as of this encounter Visit Diagnoses Not on filedocumented in this encounter Care Teams Medical Claims Processor Relationship Specialty Start Date End Date Anton Hernández MD PCP - General 10/02/18 documented as of this encounter
--- OUTSIDE RECORDS SUMMARY | 2025-01-22 16:38 | XMS_ITS | Encounter Summary ---
Author Organization [facility] Address [address] [place] [address] Phone Care Team Providers Care Vegetable Farming Supervisor Name Role Phone Anton Minor MD Unavailable [phone] Vijay Dave MD Unavailable Unavailable Maurice MEEKS MD, Jordan Chapa Unavailable [phone] Anton Hernández MD Primary Care Provider Nancy Soto RN Unavailable UnavailUzma Hodge RN Unavailable Unavailable Reason for Visit * Reason Comments Medication Refill Encounter Details Date Type Department Care Team (Late st Contact Info) Description 05/02/2020 Refill [facility] - Family Medicine [facility] [address] [place] [phone] Anton Hernández MD [address] [address] Medication Refill Social History Tobacco Use Types [...] have Coronavirus / COVID-19? No / Unsure 04/16/2020 8:33 AM REGISTERED RADIATION THERAPIST documented as of this encounter Miscellaneous Notes * Telephone Encounter - Pauline Henderson RN - 05/02/2020 1:53 PM CST Refused by Dr Hernández today 05/02/20 - Patient has requested refill too soon. This request being denied based on pcp response to previous request. Duplicate STERED RADIATION THERAPIST * Telephone Encounter - Pauline Henderson RN - 05/02/2020 1:52 PM CST Images from the original note were not included. HYDROcodone-acetaminophen (NORCO) 5-325 MG Tablet 30 Tab 0 05/02/2020 Request refused: Patient has requested refill too soon Sig - Route: Take 1-2 Tabs by mouth every 8 hours as needed for Moderate or more severe pain. - Oral Class: E Prescribe Earliest Fill Date: 05/02/2020 Notes to Pharmacy: Written notation of quantity: thrity Outpatient Morphine Equivalent Daily Dose (MEDD) 05/02/20 and after 15-30 mg MEDD Order Name Dose Route Frequency Maximum MEDD HYDROcodone-acetaminophen (NORCO) 5-325 MG Tablet 1-2 Tab Oral EVERY 8 HOURS PRN 15-30 mg MEDD Total Potential Daily Morphine Equivalence 15-30 mg MEDD Calculation Information ?? HYDROcodone-acetaminophen (NORCO) 5-325 MG Tablet [[id number]] 1223 Status: Pending Ordering user: Anton Hernández MD 05/02/20 1223 Authorized by: Anton Hernández MD PRN reasons: Moderate or more severe pain Frequency: Q8H PRN 05/02/20 - Until Discontinued Pended by: Pauline Henderson RN 05/02/[address] STERED RADIATION THERAPIST documented in this encounter Plan of Treatment Not on file documented as of this encounter Visit Diagnoses Not on filedocumented in this encounter Additional Health Concerns Assessment Noted Time PHQ-9 Depression Total Score: 0 05/04/19 20 9:30 AM REGISTERED RADIATION THERAPIST documented as of this encounter Care Teams Vegetable Farming Supervisor Relationship Specialty Start Date End Date Anton Hernández MD [address] [address] PCP - General Family Medicine 10/10/18 05/31/22 Anton Minor MD [address] [facility] [address] [place] [address] Neurologist Neurology 08/16/18 Vijay Dave MD [address] [facility] [address] [place] [address] Instructor Of Sociology Pulmonary Disease 08/16/18 Jordan Richards III, MD [address] [facility] [address] [place] [address] Surgeon Plastic Surgery 08/16/18 Nancy Soto, OSM[place] Safety Sealer 02/02/19 10/05/20 Uzma Ashby RN [place] Safety Sealer 10/06/20 11/04/20 documented as of this encounter
--- OUTSIDE RECORDS SUMMARY | 2025-01-22 16:38 | XMS_ITS | Encounter Summary ---
Author Organization [facility] Address [address] [facility] [place] [address] Phone Care Team Providers Care Pcb Design Engineer Name Role Phone Anton Minor MD Unavailable Vijay Dave MD Unavailable Unavailable Maurice MEEKS MD, Jordan Chapa Unavailable [phone] Anton Hernández MD Primary Care Provider Nancy Soto RN Unavailable UnavailUzma Hodge RN Unavailable Unavailable Reason for Visit * Reason Comments Medication Refill Encounter Details Date Type Department Care Team (Late st Contact Info) Description 06/20/[address] [facility] - Family Medicine [facility] [address] [place] [phone] Anton Hernández MD [address] [address] Medication Refill Social History Tobacco Use Types [...] Telephone Encounter - Anton Hernández MD - 06/23/2020 6:52 AM CDT Prescription approved. Please call in * Telephone Encounter - Narda Mckenna RN - 06/22/2020 3:11 PM CDT Medication failed the protocol, provider to review and approve the medication order if appropriate. Requested Prescriptions Pending Prescriptions Disp Refills amLODIPine (NORVASC) 5 MG Tablet [Pharmacy Med Name: AMLODIPINE BESYLATE 5 MG TAB] 90 Tablet Sig: TAKE ONE TABLET BY MOUTH DAILY Cardiovascular: Calcium Channel Blockers Passed - 06/20/2020 3:52 PM Passed - Valid encounter within last 12 months Past Office Visits Recent Outpatient Visits 1 month ago Centrilobular emphysema (HCC) [facility] Family [facility] - Anton Bush MD 5 months ago Neck pain [facility] Anton Bush MD 8 months ago Neck pain [facility] - Anton Bush MD 9 months ago Pulmonary emphysema, unspecified emphysema type (HCC) [facility] Anton Grigsby MD 1 year ago Benign essential HTN [facility] Anton Grigsby MD Upcoming Appointments Future Appointments In 2 days Nancy Soto RN [facility]: [facility] PHYSICIAN GROUP FAMILY [facility] In 1 month Anton Hernández MD [facility] Dars[facility] GREY IRON MOLDER - Recent and Past Visits Recent Visits Date Type Provider Dept 05/15/20 Office Visit Anton Hernández MD [facility] 01/10/20 Office Visit Anton Hernández MD [facility] 10/25/19 Office Visit Anton Hernández MD [facility] 09/04/19 Telemedicine Anton Hernández MD [facility] 05/04/19 Office Visit Anton Hernández MD [facility] Showing recent visits within past 460 days with a meds authorizing provider and meeting all other requirements Future Appointments Date Type Provider Dept 07/31/20 Appointment Anton Hernández MD [facility] Showing future appointments within next 90 days with a meds authorizing provider and meeting all other requirements Passed - Last BP in normal range BP Readings from Last 1 Encounters: 05/15/20 130/74 documented in this encounter Plan of Treatment Not on file documented as of this encounter Visit Diagnoses Not on filedocumented in this encounter Additional Health Concerns Assessment Noted Time PHQ-9 Depression Total Score: 0 05/15/19 2:28 PM ROLL TRUCKER documented as of this encounter Care Teams Pcb Design Engineer Relationship Specialty Start Date End Date Anton Hernández MD [address] [place] [address] PCP - General Family Medicine 10/10/18 05/31/22 Anton Minor MD [address] [facility] [address] [place] [address] Neurologist Neurology 08/16/18 Vijay Dave MD [address] [facility] [address] [place] [address] Fish Protector Pulmonary Disease 08/16/18 Jordan Richards III, MD [address] [place] [address] [address] [place] [address] Surgeon Plastic Surgery 08/16/18 Nancy Soto, OSMANY [place] Web Development Director 02/02/19 10/05/20 Uzma Ashby RN [place] Web Development Director 10/06/20 11/04/20 documented as of this encounter
--- OUTSIDE RECORDS SUMMARY | 2025-01-22 16:38 | XMS_ITS | Encounter Summary ---
Author Organization [facility] Address [address] [facility] [place] [address] Phone Care Team Providers Care Glass Products Inspector Name Role Phone Anton Minor MD Unavailable Vijay Dave MD Unavailable Unavailable Maurice MEEKS MD, Jordan Eduard Unavailable [phone] Anton Hernández MD Primary Care Provider [phone] Reason for Visit * Reason Comments Medication Refill Encounter Details Date Type Department Care Team (Late st Contact Info) Description 11/13/2020 Refill [facility] [address] [place] [phone] Anton Hernández MD [address] [address] Medication Refill Social History Tobacco Use Types [...] Telephone Encounter - Anton Hernández MD - 11/14/2020 11:06 AM CDT Prescription approved. Please call in * Telephone Encounter - Pauline Henderson RN - 11/14/2020 10:52 AM CDT PRN medication requires review from provider Per nursing clinical judgement, provider to review and approve the medication(s) order(s) if appropriate. Requested Prescriptions Pending Prescriptions Disp Refills lisinopril (PRINIVIL, ZESTRIL) 10 MG Tablet [Pharmacy Med Name: LISINOPRIL 10 MG TABLET] 90 Tablet 1 Sig: TAKE ONE TABLET BY MOUTH DAILY BENJAMIN Inhibitors Protocol Passed - 11/14/2020 10:44 AM Passed - Serum potassium on record in past 12 months POTASSIUM Date Value Ref Range Status 11/19/2019 4.8 3.5 - 5.1 mmol/L Final Passed - Blood pressure on record in past 12 months Clinician-entered: BP Readings from Last 3 Encounters: 08/04/20 130/68 05/15/20 130/74 01/10/20 124/70 Patient-entered: No data recorded Passed - Visit with relevant provider in past 12 months or upcoming 90 days Recent Visits Date Type Provider Dept 08/04/20 Office Visit nAton Hernández MD [facility] 05/15/20 Office Visit Anton Hernández MD [facility] 01/10/20 Office Visit Anton Hernández MD [facility] Showing recent visits within past 365 days and meeting all other requirements Future Appointments No visits were found meeting these conditions. Showing future appointments within next 90 days and meeting all other requirements Passed - GFR on record in past 12 months GFR, EST. NONAFRICAN Date Value Ref Range Status 11/19/2019 >60 >=60 Final albuterol 108 (90 Base) MCG/ACT Aerosol Solution [Pharmacy Med Name: ALBUTEROL HFA 90 MCG INHALER (IN] 17 g 3 Sig: INHALE TWO PUFFS BY MOUTH EVERY SIX HOURS NEEDED FOR WHEEZING Short Acting Inhaled Beta-Agonists Protocol Passed - 11/14/2020 10:44 AM Passed - Visit with relevant provider in past 12 months or upcoming 90 days Recent Visits Date Type Provider Dept 08/04/20 Office Visit Anton Hernández MD [facility] 05/15/20 Office Visit Anton Hernández MD [facility] 01/10/20 Office Visit Anton Hernández MD [facility] Showing recent visits within past 365 days and meeting all other requirements Future Appointments No visits were found meeting these conditions. Showing future appointments within next 90 days and meeting all other requirements documented in this encounter Plan of Treatment Not on file documented as of this encounter Visit Diagnoses Diagnosis Pulmonary emphysema, unspecified emphysema type documented in this encounter Additional Health Concerns Assessment Noted Time PHQ-9 Depression Total Score: 0 08/06/19 4:17 PM CDT documented as of this encounter Care Teams Glass Products Inspector Relationship Specialty Start Date End Date Anton Hernández MD [address] [place] [address] [place] [address] PCP - General Family Medicine 10/10/18 05/31/22 Anton Minor MD [address] [facility] [address] [place] [address] Neurologist Neurology 08/16/18 Vijay Dave MD [address] [facility] [address] [place] [address] Civil Structural Engineer Pulmonary Disease 08/16/18 Jordan Richards III, MD [address] [facility] [address] [place] [address] Surgeon Plastic Surgery 08/16/18 documented as of this encounter
--- OUTSIDE RECORDS SUMMARY | 2025-01-22 16:38 | XMS_ITS | Clinical Summary ---
Author Organization [facility] Address [address] [facility] [place] [address] Care Team Providers Care Ironworker Apprentice Name Role Phone Anton Hernández MD Primary Care Provider [phone] Source Comments [facility],non-owned Affiliates and Associated Physician Practices is amultiple site organization consisting of ambulatory clinics and hospital sitesin [place], [place], [place] and [place]. This disclosure is being madepursuant to the Care Everywhere program and may not contain all information available regarding this patient. Last updated 17.[facility] Allergies No known active allergies Medications * Be aware that medications may not be up to date on this document. Alwaysverify current medications with the patient. amLODIPine (NORVASC) 5 MG tablet Take 5 mg by mouth once daily 01/11/2018 Active lisinopril (PRINIVIL; ZESTRIL) 10 MG tablet 11/22/2018 Active aspirin (ASPIRIN) 81 MG tablet Take 81 mg by mouth once daily 08/11/2018 Active albuterol HFA (PROVENTIL;VENT MARY;PROAIR) 108 (90 Base) MCG/ACT inhaler Inhale 2 puffs by mouth 05/09/2018 Active gabapentin (NEURONTIN) 300 MG capsule Take 1 capsule by mouth 3 times daily 90 capsule 12/26/2018 Active carBAMazepine (TEGRETOL) 200 MG tabletIndicatio ns:Bilateral occipital neuralgia Take 1 tablet by mouth 2 times daily 180 tablet 4 01/03/2019 Active Active Problems Problem Noted Date Diagnosed Date Mass of scalp 12/19/2018 Social History Tobacco Use Types Packs/Day Years Used Date Smoking Tobacco: Former Cigarettes Smokeless Tobacco: Never Alcohol Use Standard Drinks/Week Comments Not Currently 0 (1 standard drink = 0.6 oz pur e alcohol) Sex and Gender Information Value Date Recorded Sex Assigned at Not on file Legal Sex Male 9:22 AM CDT Gender Identity Not on file Sexual Orientation Not on file Last Filed Vital Signs Vital Sign Reading Time Taken Comments Blood Pressure 137/89 12/26/2018 9:53 AM CDT Pulse 66 12/26/2018 9:53 AM CDT Temperature 36.3 C (97.3 F) 12/18/2018 8:30 AM CDT Respiratory Rate - - Oxygen Saturation 97% 12/18/2018 8:30 AM CDT Inhaled Oxygen Concentration - - Weight 70.3 kg (155 lb) 12/26/2018 9:53 AM CDT Height 182.9 cm (6') 12/26/2018 9:53 AM CDT Body Mass Index 21.02 12/26/2018 9:53 AM CDT Plan of Treatment Health Maintenance Due Date Last Done Comments COLOGUARD (AGES 45-75) - COL ON CA SCREENING 1960 COLON MONITORING 1958 COLONOSCOPY - COLON CA SCREENING 1958 CT COLONOGRAPHY - COLON CA SCREENING 1958 Colorectal Cancer Screening 1958 FIT - COLON CA SCREENING 1958 FLEX SIG - COLON CA SCREENING 1958 HEPATITIS C SCREENING 11/18/1976 DTAP/TDAP/TD VACCINES (1 - Tdap) 1977 PNEUMOCOCCAL VACCINE 50+ (1 of 1 - PCV) 2008 ZOSTER VACCINE (1 of 2) 2008 LIPID TESTING 10/11/2023 10/10/2018 AAA SCREENING 11/24/2023 DEPRESSION SCREENING 04/11/2024 COVID-19 VACCINE ( - 2023-2 5 season) 2024 INFLUENZA VACCINE (#1) 2024 8, 02/09/2017 Respiratory Syncytial Virus (RSV) Vaccine Pt: or over 60 yrs (1 - 1-dose 75+ series) 2033 HEPATITIS B VACCINE Aged Out No longe r eligible based on patient's age to complete this topic HIB VACCINE Aged Out No longer eligi ble based on patient's age to complete this topic HPV VACCINE Aged Out No longer eligi ble based on patient's age to complete this topic MENINGOCOCCAL (Group B) VACCINE SHARED DECISION-MAKING Aged Out No longer eligible based on patient's age to complete this topic MENINGOCOCCAL GROUPS A/C/Y/W VACCINE Aged Out No longer eligible b ased on patient's age to complete this topic Insurance [facility] [place] [address] [place] [address] [facility] Care Teams Ironworker Apprentice Relationship Specialty Start Date End Date Anton Hernández MD [facility] - General 10/02/18
--- OUTSIDE RECORDS SUMMARY | 2025-01-22 16:38 | XMS_ITS | Encounter Summary ---
Author Organization [facility] Address [address] [facility] [place] [address] Phone Care Team Providers Care Agent Licensing Clerk Name Role Phone Anton Minor MD Unavailable [phone] Vijay Dave MD Unavailable Unavailable Maurice MEEKS MD, Jordan Chapa Unavailable [phone] Anton Hernández MD Primary Care Provider Nancy Soto RN Unavailable UnavailUzma Hodge RN Unavailable Unavailable Reason for Visit * Reason Comments Medication Refill Encounter Details Date Type Department Care Team (Late st Contact Info) Description 05/16/2020 Refill [facility] - Family Medicine [facility] [address] [place] [phone] Anton Hernández MD [address] [address] Medication Refill Social History Tobacco Use Types [...] COVID-19? No / Unsure 05/15/2020 2:16 PM PERSONAL LINES SALES REP documented as of this encounter Plan of Treatment Not on file documented as of this encounter Visit Diagnoses Not on filedocumented in this encounter Additional Health Concerns Assessment Noted Time PHQ-9 Depression Total Score: 0 05/15/19 2:28 PM PERSONAL LINES SALES REP documented as of this encounter Care Teams Agent Licensing Clerk Relationship Specialty Start Date End Date Anton Hernández MD [address] [facility] [address] [place] [address] PCP - General Family Medicine 10/10/18 05/31/22 Anton Minor MD [address] [place] [address] Neurologist Neurology 08/16/18 Vijay Dave MD [address] [place] [address] Speech Coach Pulmonary Disease 08/16/18 Jordan Richards III, MD [address] [place] [address] Surgeon Plastic Surgery 08/16/18 Nancy Soto, OSMANY [place] Automotive Parts Specialist 02/02/19 10/05/20 Uzma Ashby RN [place] Automotive Parts Specialist 10/06/20 11/04/20 documented as of this encounter
--- OUTSIDE RECORDS SUMMARY | 2025-01-22 16:38 | XMS_ITS | Encounter Summary ---
Author Organization [facility] Address [address] [place] [address] [place] [address] Care Team Providers Care Press Secretary Name Role Phone Anton Hernández MD Primary Care Provider [phone] Encounter Details Date Type Department Care Team (Late st Contact Info) Description 01/03/2019 Telephone [facility] [address] [place] [address] Melba Dover MD [address] [place] [id number] Social History Tobacco Use Types Packs/Day Years [...] * Patient Instructions* Raulito Guido - 01/03/2019 9:42 AM CDT Patient called in requesting a Med refill. Drug type:FLEXORIL, XANIX [facility]acy:[facility] [place] [place] Patient call back number: [phone] . Following Guideline rules, we informed the patient clinic will contact them within 24 business hours. documented in this encounter Plan of Treatment Not on file documented as of this encounter Visit Diagnoses Not on filedocumented in this encounter Care Teams Press Secretary Relationship Specialty Start Date End Date Anton Hernández MD PCP - General 10/02/18 documented as of this encounter
--- OUTSIDE RECORDS SUMMARY | 2025-01-22 16:38 | XMS_ITS | Clinical Summary ---
Author Organization [facility] Address [address] [place] [address] Phone Care Team Providers Care Small Equipment Operator Name Role Phone Anton Minor MD Unavailable [phone] Vijay Dave MD Unavailable Unavailable Maurice MEEKS MD, Jordan Chapa Unavailable [phone] Allergies No known active allergies Medications Aspirin 81 MG TabletIndications :Essential hypertension Take 1 Tab by mouth daily. 100 Tab 9 Active tiotropium (SPIRIVA) 18 MCG Capsule take 1 Cap by inhalation daily. 90 Cap 2 0 Active amLODIPine (NORVASC) 5 MG Tablet TAKE ONE TABLET BY MOUTH DAILY 90 Tablet 2 2 Active lisinopril (PRINIVIL, ZESTRIL) 10 MG Tablet TAKE ONE TABLET BY MOUTH DAILY 90 Tablet 1 2 Active albuterol 108 (90 Base) MCG/ACT Aerosol SolutionIndicatio ns:Pulmonary emphysema, unspecified emphysema type take 2 Puffs by inhalation every 6 hours as needed for Wheezing. 17 g 3 2 Active Active Problems Problem Noted Date Diagnosed Date Centrilobular emphysema 2018 Benign essential HTN 2018 Pulmonary HTN 2018 Bilateral occipital neuralgia 08/11/2018 Neuropathy 08/11/2018 Immunizations Immunization Administration Dates Next Due Covid-19 Vaccine, Vector-nr, Rs-ad26, Pf, 0.5 Ml (UBALDO/J&J) 09/09/2020 Covid-19, Mrna, Lnp-s, Pf, 3 0 Mcg/0.3 Ml Dose, Ruddy-sucrose (AirInSpace del val[place] top) 08/28/2021 Influenza Vaccine 01/11/2018,02/09/2017 Influenza Vaccine, Quadrivalent, PF 02/11/2021,1 ,02/02/2019 Pneumococcal Vaccine Adult - 23 Valent 0 Family History Medical History Relation Name Comments Congestive Heart Failure Father Heart Attack Father Diabetes Mother Hypertension Mother Obstructive Sleep Apnea Mother Restless Leg Syndrome Mother Stroke Mother Relation Name Status Comments Father Mother Social History Tobacco Use Types Packs/Day Years Used Date Smoking Tobacco: Former Cigarettes Smokeless Tobacco: Never Tobacco Cessation:Counseling Given: No Alcohol Use Standard Drinks/Week Comments Never 0 [...] Sign Reading Time Taken Comments Blood Pressure 130/78 09/16/2021 8:10 AM CDT Pulse 74 09/16/2021 8:10 AM CDT Temperature 36.8 C (98.2 F) 09/16/2021 8:10 AM CDT Respiratory Rate 17 09/16/2021 8:10 AM CDT Oxygen Saturation 97% 09/16/2021 8:10 AM CDT Inhaled Oxygen Concentration - - Weight 73 kg (161 lb) 09/16/2021 8:10 AM CDT Height 182.9 cm (6') 09/16/2021 8:10 AM CDT Body Mass Index 21.84 09/16/2021 8:10 AM CDT Plan of Treatment Health Maintenance Due Date Last Done Comments Hepatitis C Virus (HCV) Screening 1960 TdaP Immunization 1960 Cologuard 11/24/2003 Colonoscopy 11/24/2003 Colorectal Cancer Screening 11/24/2003 Immunochemical Fecal Occult Blood 11/24/2003 Zoster Immunization (1 of 2) 2008 Respiratory Syncytial Virus (RSV) Immunization (Adult) (1 - Risk 60-74 years 1-dose series) 2018 Pneumococcal Immunization (50+ years) (2 of 2 - PCV) 01/09/2021 01/10/2020 Influenza Immunization (#1) 2024 11/0 06/2020, 01/10/2020, 02/02/2019, Additional history exists SARS-COV-2 Immunization ( season) 2024 08/28/2021, 02/24/2021, 09/09/2020 Pneumococcal Immunization Combined Discontinued 01/10/2020 Hepatitis B Immunization Aged Out No longer eligible based on patient's age to complete this topic Human Papillomavirus (HPV) Immunization Aged Out No longer eligible based on patient's age to complete this topic Meningococcal Immunization (ACWY) Aged Out No longer eligible based on patient's age to complete this topic Rotavirus Immunization Aged Out No lo nger eligible based on patient's age to complete this topic Insurance [place]ID [place] Advance Directives Documents on File Type Date Recorded Patient Hadoop Engineer Expl anation Advance Care Planning Discussion 05/15/2020 3:20 PM ACP-Cover Sheet POLST/POST/[place] DNR 05/15/2020 3:19 PM ACP-Di scussion Record 05/15/20 POLST/POST/[place] DNR 05/15/2020 3:19 PM POA-HC 05/15/20 Care Teams Small Equipment Operator Relationship Specialty Start Date End Date Anton Minor MD [address] [place] [address] [address] [place] [address] Neurologist Neurology 08/16/18 Vijay Dave MD [address] [place] [address] [address] [place] [address] Talent Agent Pulmonary Disease 08/16/18 Jordan Richards III, MD [address] [place] [address] [address] [place] [address] Surgeon Plastic Surgery 08/16/18
--- OUTSIDE RECORDS SUMMARY | 2025-01-22 16:38 | XMS_ITS | Encounter Summary ---
Author Organization [facility] Address [facility] [facility] [place] [address] Care Team Providers Care Geospatial Intelligence Analyst Name Role Phone Anton Hernández MD Primary Care Provider Encounter Details Date Type Department Care Team (Late st Contact Info) Description 01/03/2019 Telephone [facility] [address] [place] [address] Melba Dover MD [address] [place] [phone] Social History Tobacco Use Types Packs/Day Years [...] * Patient Instructions* Raulito Guido - 01/03/2019 3:53 PM CDT Patient called in requesting a Med refill. Drug type:FLEXIROL & XANAX Pharmacy:[facility] Patient call back number: [phone] . Following Guideline rules, we informed the patient clinic will contact them within 24 business hours. documented in this encounter Plan of Treatment Not on file documented as of this encounter Visit Diagnoses Not on filedocumented in this encounter Care Teams Geospatial Intelligence Analyst Relationship Specialty Start Date End Date Anton Hernández MD PCP - General 10/02/18 documented as of this encounter
[2025-01-24 09:09] LABS: RPR Non Reactive (Non Reactive)
== END 2025-01-22 14:43 | disposition home or self-care (01) ==
PROVIDERS: PCP Family Medicine; Visit Provider Family Medicine
DX: I10 Essential (primary) hypertension (principal); G62.9 Polyneuropathy, unspecified
CPT/HCPCS: 36415; 80053; 81001; 82043; 82607; 84443; 85027; 86592

== ENCOUNTER 2025-03-06 11:25 | Outpatient (CLI) | payer MEDICARE, SELFPAY ==
[2025-03-06 11:59] LABS: Hematocrit 43.6 % (37.0-46.0); Hemoglobin 14.0 g/dL (12.4-15.3); Mean Corpuscular HGB Conc 32.1 g/dL (32-36); Mean Corpuscular Hemoglobin 30.8 pg (27.0-31.0); Mean Corpuscular Volume 95.8 fL (78.0-102.0); Platelet Count Result 356 K/mm3 (150-420); Red Blood Count 4.55 M/mm3 (4.70-6.10); White Blood Count 8.9 K/mm3 (4.8-10.8)
--- OUTSIDE RECORDS SUMMARY | 2025-03-06 12:04 | XMS_ITS | Clinical Summary ---
Author Organization [facility] Address [address] [place] [address] Care Team Providers Care Sweat Box Attendant Name Role Phone Anton Hernández MD Primary Care Provider [phone] Allergies No known active allergies Medications amLODIPine [...] 04/03/2018 Assessment & Plan (04/03/2018 5:47 PM BRICK PICKER): Chest x-ray on March revealed: 1. Hyperinflation, 2. A few small opacities are noted, which may be primarily due to vessels en face 3. Small opacity left lower lung field possible nipple shadow. Chest x-ray with nipple markers was ordered. Allergic rhinitis with postnasal drip 04/03/2018 Assessment & Plan (04/03/2018 5:50 PM BRICK PICKER): The patient has all clinical features of allergic rhinitis including chronic postnasal drip and nasal congestion. The patient was started on fluticasone nasal spray. Mild persistent asthma without complication 02/09 Assessment & Plan (04/03/2018 5:45 PM BRICK PICKER): Pulmonary function testing on March 27, 2018 has shown moderate obstructive lung disease with significant response to bronchodilator. The patient was started on combination of Breo Ellipta 100 mcg 1 puff once a day and Spiriva Respimat 1.25 mcg 2 puffs once a day. He was also advised to continue with albuterol inhaler 2 puffs as needed. Assessment & Plan (02/27/2018 8:29 PM BRICK PICKER): The patient was diagnosed with asthma at communications programmer and since then he has been on inhaled bronchodilators. He complains of exertional shortness of breath. PFT, 6 min walk test, CBC and BMP were ordered. He was advised to continue with albuterol inhaler 2 puffs as needed. His inhaler technique was reviewed and correct technique was clearly explained and demonstrated. Centrilobular emphysema 02/27/2018 Assessment & Plan (04/03/2018 5:45 PM BRICK PICKER): Pulmonary function testing on March 27, 2018 [...] shot. Assessment & Plan (02/27/2018 8:35 PM BRICK PICKER): The patient has 25 pack year smoking [...] (09/15/2017): Added automatically from request for surgery [id number] Scalp mass 01/12/2017 Numbness and tingling of both legs 11/29/2016 Intractable chronic migraine without aura and without status migrainosus 10/05/2016 Bilateral occipital neuralgia 10/05/2016 Resolved Problems Problem Noted Date Diagnosed Date Resolved Date BMI 22.0-22.9, adult 02/27/2018 019 Assessment & Plan (04/03/2018 5:48 PM BRICK PICKER): BMI is 22.42 kg/m2. The patient denies any significant weight loss over the past 10 months. Assessment & Plan (02/27/2018 8:33 PM BRICK PICKER): BMI is 22.89 kg/m2. No history of weight loss over the past 6 months. Immunizations Immunization Administration Dates Next Due Influenza, Quadrivalent, Spl it, Preservative Free, Intramuscular 01/11/2018 Influenza, Unspecified 02/09/2017 [employer] (J&J) SARS-CoV-2 Vaccination 09/09/2020 Medical History Medical [...] on file Legal Sex Male 7:53 AM BRICK PICKER Gender Identity Not on file Sexual Orientation [...] 01/05/2021 9:01 AM CDT Plan of Treatment Not on file Insurance [facility] Care Teams Sweat Box Attendant Relationship Specialty Start Date End Date Anton Hernández MD PCP - General Family Medicine 06/12/20
--- OUTSIDE RECORDS SUMMARY | 2025-03-06 12:05 | XMS_ITS | Clinical Summary ---
Author Organization [facility] Address [address] [facility] [place] [address] Care Team Providers Care Sales Contractor Name Role Phone Anton Hernández MD Primary Care Provider [phone] Source Comments [facility],non-owned Affiliates and Associated Physician Practices is amultiple site organization consisting of ambulatory clinics and hospital sitesin [place], [place], [place] and [place]. This disclosure is being madepursuant to the Care Everywhere program and may not contain all information available regarding this patient. Last updated 17.[employer] Allergies No known active allergies Medications * [...] FLEX SIG - COLON CA SCREENING 1958 LIPID TESTING 1958 HEPATITIS C SCREENING 11/18/1976 DTAP/TDAP/TD VACCINES (1 - Tdap) 1977 PNEUMOCOCCAL VACCINE 50+ (1 of 1 - PCV) 2008 ZOSTER VACCINE (1 of 2) 2008 AAA SCREENING 11/24/2023 DEPRESSION SCREENING 04/11/2024 COVID-19 VACCINE (1 - 2024-2 6 season) 2024 INFLUENZA VACCINE (#1) 2024 , 02/09/2017 Respiratory Syncytial Virus (RSV) Vaccine Pt: [...] patient's age to complete this topic Insurance [facility] [place] [address] [place] [address] [facility] Care Teams Sales Contractor Relationship Specialty Start Date End Date Anton Hernández MD [phone] (work) PCP - General 10/02/18
--- OUTSIDE RECORDS SUMMARY | 2025-03-06 12:05 | XMS_ITS | Encounter Summary ---
Author Organization [facility] Address [address] [place] [address] [place] [address] Care Team Providers Care Compressor Station Engineer Name Role Phone Anton Hernández MD Primary Care Provider [phone] Reason for Visit * Reason Onset Date Comments Future Appointment 10/03/2018 Encounter Details Date Type Department Care Team (Late st Contact Info) Description 10/03/2018 Telephone [facility] [address] [place] [address] Melba [place] MD [address] [place] [phone] Future Appointment Social History Tobacco Use Types [...] to someone in the office. Thanks Delia [facility] Croze Machine Operator documented in this encounter Plan of Treatment Not on file documented as of this encounter Visit Diagnoses Not on filedocumented in this encounter Care Teams Compressor Station Engineer Relationship Specialty Start Date End Date Anton Hernández MD PCP - General 10/02/18 documented as of this encounter
--- OUTSIDE RECORDS SUMMARY | 2025-03-06 12:05 | XMS_ITS | Encounter Summary ---
Author Organization [facility] Address [address] [place] [address] [place] [address] Care Team Providers Care Rocket Engine Component Mechanic Name Role Phone Anton Hernández MD Primary Care Provider [phone] Encounter Details Date Type Department Care Team (Late st Contact Info) Description 01/03/2019 Telephone [facility] [address] [place] [address] Melba Dover MD [address] [phone] Social History Tobacco Use Types Packs/Day Years [...] requesting a Med refill. Drug type:FLEXORIL, XANIX [facility] [place], [place] Patient call back number: [phone] . Following Guideline rules, we informed the patient clinic will contact them within 24 business hours. documented in this encounter Plan of Treatment Not on file documented as of this encounter Visit Diagnoses Not on filedocumented in this encounter Care Teams Rocket Engine Component Mechanic Relationship Specialty Start Date End Date Anton Hernández MD PCP - General 10/02/18 documented as of this encounter
--- OUTSIDE RECORDS SUMMARY | 2025-03-06 12:05 | XMS_ITS | Encounter Summary ---
Author Organization [facility] Address [facility] [facility] [place] [address] Care Team Providers Care Product Design Specialist Name Role Phone Anton Hernández MD Primary Care Provider [phone] Encounter Details Date Type Department Care Team (Late st Contact Info) Description 01/03/2019 Telephone [facility] [address] [place] [address] Melba Dover MD [address] [place] [phone] Social History Tobacco Use Types Packs/Day Years [...] TALK TO CLINIC Patient Call Back number: [phone] documented in this encounter Plan of Treatment Not on file documented as of this encounter Visit Diagnoses Not on filedocumented in this encounter Care Teams Product Design Specialist Relationship Specialty Start Date End Date Anton Hernández MD PCP - General 10/02/18 documented as of this encounter
--- OUTSIDE RECORDS SUMMARY | 2025-03-06 12:05 | XMS_ITS | Encounter Summary ---
Author Organization [facility] Address [address] [place] [address] Phone Care Team Providers Care Stitcher Tape Controlled Machine Name Role Phone Anton Minor MD Unavailable [phone] Vijay Dave MD Unavailable Unavailable Maurice MEEKS MD, Jordan Chapa Unavailable [phone] Anton Hernández MD Primary Care Provider Nancy Soto RN Unavailable UnavailUzma Hodge RN Unavailable Unavailable Reason for Visit * Reason Comments Medication Refill Encounter Details Date Type Department Care Team (Late st Contact Info) Description 05/02/2020 Refill [facility] - [facility] [address] [place] [address] Anton Hernández MD [address] [address] Medication Refill Social History Tobacco Use Types [...] COVID-19? No / Unsure 04/16/2020 8:33 AM INDUSTRIAL ENGINEERING ANALYST documented as of this encounter Functional Status documented as of this encounter Mental Status * Question Answer Entry Date Author Has the patient fallen twice in the past year without injury or once in the past year with injury? Yes 05/05/2020 3:00 PM INDUSTRIAL ENGINEERING ANALYST Razia Soto RN Does the patient report or d o you observe difficulty in gait or balance? No 05/05/2020 3:00 PM INDUSTRIAL ENGINEERING ANALYST Razia Soto RN documented in this encounter Miscellaneous Notes * Telephone Encounter - Pauline Henderson RN - 05/02/2020 1:53 PM CST Refused by Dr Hernández today 05/02/20 - Patient has requested refill too soon. This request being denied based on pcp response to previous request. Duplicate STRIAL ENGINEERING ANALYST * Telephone Encounter - Pauline Henderson RN [...] Information ?? HYDROcodone-acetaminophen (NORCO) 5-325 MG Tablet [[id number]] 1223 Status: Pending Ordering user: Anton Hernández MD 05/02/20 1223 Authorized by: Anton Hernández MD PRN reasons: Moderate or more severe pain Frequency: Q8H PRN 05/02/20 - Until Discontinued Pended by: Pauline Henderson RN 05/02/20 1215 [facility]acy [facility] [address] STRIAL ENGINEERING ANALYST documented in this encounter Plan of Treatment Not on file documented as of this encounter Visit Diagnoses Not on filedocumented in this encounter Additional Health Concerns Assessment Noted Time PHQ-9 Depression Total Score: 0 05/04/19 9:30 AM INDUSTRIAL ENGINEERING ANALYST documented as of this encounter Care Teams Stitcher Tape Controlled Machine Relationship Specialty Start Date End Date Anton Hernández MD [address] [address] PCP - General Family Medicine 10/10/18 05/31/22 Anton Minor MD [address] [facility] [address] [place] [address] Neurologist Neurology 08/16/18 Vijay Dave MD [address] [facility] [address] [place] [address] Civil Geotechnical Engineer Pulmonary Disease 08/16/18 Jordan Richards III, MD [address] [facility] [address] [place] [address] Surgeon Plastic Surgery 08/16/18 Nancy Soto, OSMANY [place] Fixed Wing Pilot 02/02/19 10/05/20 Uzma Ashby RN [place] Fixed Wing Pilot 10/06/20 11/04/20 documented as of this encounter
--- OUTSIDE RECORDS SUMMARY | 2025-03-06 12:06 | XMS_ITS | Encounter Summary ---
Author Organization [facility] Address [address] [place] [address] Phone Care Team Providers Care Funeral Professional Name Role Phone Anton Minor MD Unavailable Vijay Dave MD Unavailable Unavailable Maurice MEEKS MD, Jordan Chapa Unavailable [phone] Anton Hernández MD Primary Care Provider Nancy Soto RN Unavailable UnavailUzma Hodge RN Unavailable Unavailable Reason for Visit * Reason Comments Medication Refill Encounter Details Date Type Department Care Team (Late st Contact Info) Description 06/20/2020 Refill [facility] #2 [place] [address] Anton Hernández MD #[address] [address] Medication Refill Social History Tobacco Use Types [...] Visits 1 month ago Centrilobular emphysema (HCC) [facility] Family [facility] - Anton Bush MD 5 months ago Neck pain [facility] Anton Bush MD 8 months ago Neck pain [facility] Anton Bush MD 9 months ago Pulmonary emphysema, unspecified emphysema type (HCC) [facility] Anton Grigsby MD 1 year ago Benign essential HTN [facility] Anton Grigsby MD Upcoming Appointments Future Appointments In 2 days Nancy Soto RN [facility] Cable Placer Management DEPOSIT Arrive at: [facility] FAM[facility]IC[facility] In 1 month Anton Hernández MD [facility] Family [facility] Darshan [facility] SOCKET PULLER - Recent and Past Visits Recent Visits [...] Provider Dept 07/31/20 Appointment Anton Hernández MD [facility] Darshan Showing future appointments within next 90 [...] Depression Total Score: 0 05/15/19 2:28 PM PROJECT INTERNSHIP documented as of this encounter Care Teams Funeral Professional Relationship Specialty Start Date End Date Anton Hernández MD #2 [facility] [address] [place] [address] PCP - General Family Medicine 10/10/18 05/31/22 Anton Minor MD [address] [facility] [address] [place] [address] Neurologist Neurology 08/16/18 Vijay Dave MD [address] [facility] [address] [place] [address] Weigh Box Tender Pulmonary Disease 08/16/18 Jordan Richards III, MD [address] [facility] [address] [place] [address] Surgeon Plastic Surgery 08/16/18 Nancy Soto, [place] Sql Ssis Developer 02/02/19 10/05/20 Uzma Ashby RN [place] Sql Ssis Developer 10/06/20 11/04/20 documented as of this encounter
--- OUTSIDE RECORDS SUMMARY | 2025-03-06 12:06 | XMS_ITS | Encounter Summary ---
Author Organization [facility] Address [address] [place] [address] Phone Care Team Providers Care Corporate Counselor Name Role Phone Anton Minor MD Unavailable [phone] Vijay Dave MD Unavailable Unavailable Maurice MEEKS MD, Jordan Chapa Unavailable [phone] Anton Hernández MD Primary Care Provider [phone] Nancy Soto RN Unavailable UnavailUzma Hodge RN Unavailable Unavailable Reason for Visit * Reason Onset Date Comments multiple questions and fyis 06/05/2020 Encounter Details Date Type Department Care Team (Late st Contact Info) Description 06/05/2020 Telephone [facility] [address] [place] [address] Anton Hernández MD #[address] [address] multiple questions and fyis Social [...] COVID-19? No / Unsure 05/15/2020 2:16 PM LEARNING SUPPORT TEACHER documented as of this encounter Miscellaneous Notes * Telephone Encounter - Jennifer Aguilar RN - 06/06/2020 2:00 PM LEARNING SUPPORT TEACHER Pt called back at this time. He [...] made for July 31, 2020 at 1000. NING SUPPORT TEACHER * Telephone Encounter - Niki Heart RN - 06/06/2020 12:39 PM LEARNING SUPPORT TEACHER Call placed to patient. Message left to call office back. NING SUPPORT TEACHER * Telephone Encounter - Anton Hernández MD - 06/05/2020 3:36 PM CST You can take both mj and vicodin together as long as the amounts are reasonable You need office visit in 3 three months NING SUPPORT TEACHER * Telephone Encounter - Carina Mueller RN - 06/05/2020 3:01 PM CST What are the affects of marijuana and Vicodin taken together? When does he need to see you again? Pt was not able to do the mri test today at [facility] . His arms clenched up tight against him. Dr Bartlett has given him diazepam 10 mg to take one hour before the next mri test. Pt states he does not think it will help. Pt will be seeing a plastic surgeon concerning the bumps on his head tomorrow. Has first covid shot scheduled for June 13. NING SUPPORT TEACHER documented in this encounter Plan of Treatment Not on file documented as of this encounter Visit Diagnoses Not on filedocumented in this encounter Additional Health Concerns Assessment Noted Time PHQ-9 Depression Total Score: 0 05/15/19 2:28 PM LEARNING SUPPORT TEACHER documented as of this encounter Care Teams Corporate Counselor Relationship Specialty Start Date End Date Anton Hernández MD #[address] [address] PCP - General Family Medicine 10/10/18 05/31/22 Anton Minor MD [address] [facility] [address] [place] [address] Neurologist Neurology 08/16/18 Vijay Dave MD [address] [facility] [address] [place] [address] Recycling Attendant Pulmonary Disease 08/16/18 Jordan Richards III, MD [address] [facility] [address] [place] [address] Surgeon Plastic Surgery 08/16/18 Nancy Soto, [place] Loss Prevention Representative 02/02/19 10/05/20 Uzma Ashby RN [place] Loss Prevention Representative 10/06/20 11/04/20 documented as of this encounter
--- OUTSIDE RECORDS SUMMARY | 2025-03-06 12:06 | XMS_ITS | Encounter Summary ---
Author Organization [facility] Address [facility] [place] [address] Care Team Providers Care Neon Sign Worker Name Role Phone Anton Hernández MD Primary Care Provider [phone] Encounter Details Date Type Department Care Team (Late st Contact Info) Description 01/03/2019 Telephone [facility] [address] [place] [address] Melba Dover MD [address] [place] [address] Social History Tobacco Use Types Packs/Day Years [...] a Med refill. Drug type:FLEXIROL & XANAX Pharmacy:[facility] Patient call back number: [phone] . Following Guideline rules, we informed the patient clinic will contact them within 24 business hours. documented in this encounter Plan of Treatment Not on file documented as of this encounter Visit Diagnoses Not on filedocumented in this encounter Care Teams Neon Sign Worker Relationship Specialty Start Date End Date Anton Hernández MD PCP - General 10/02/18 documented as of this encounter
--- OUTSIDE RECORDS SUMMARY | 2025-03-06 12:07 | XMS_ITS | Encounter Summary ---
Author Organization [facility] Address [address] [place] [address] Phone Care Team Providers Care Machine Boss Name Role Phone Anton Minor MD Unavailable [phone] Vijay Dave MD Unavailable Unavailable Maurice MEEKS MD, Jordan Chapa Unavailable [phone] Anton Hernández MD Primary Care Provider Nancy Soto RN Unavailable UnavailUzma Hodge RN Unavailable Unavailable Reason for Visit * Reason Comments Medication Refill Encounter Details Date Type Department Care Team (Late st Contact Info) Description 09/30/2020 Refill [facility] #2 [place] [address] Anton Hernández MD #[address] [address] Medication Refill Social History Tobacco Use Types [...] documented as of this encounter Care Teams Machine Boss Relationship Specialty Start Date End Date Anton Hernández MD #2 [facility] [address] [place] [address] PCP - General Family Medicine 10/10/18 05/31/22 Anton Minor MD [address] [facility] [address] [place] [address] Neurologist Neurology 08/16/18 Vijay Dave MD [address] [facility] [address] [place] [address] Network Security Officer Pulmonary Disease 08/16/18 Jordan Richards III, MD [address] [facility] [address] [place] [address] Surgeon Plastic Surgery 08/16/18 Nancy Soto, [place] Revenue Enforcement Collection Agent 02/02/19 10/05/20 Uzma Ashby RN [place] Revenue Enforcement Collection Agent 10/06/20 11/04/20 documented as of this encounter
--- OUTSIDE RECORDS SUMMARY | 2025-03-06 12:07 | XMS_ITS | Encounter Summary ---
Author Organization [facility] Address [address] [place] [address] Phone Care Team Providers Care Casual Shoe Inspector Name Role Phone Anton Minor MD Unavailable [phone] Vijay Dave MD Unavailable Unavailable Maurice MEEKS MD, Jordan Najeraew Unavailable [phone] Anton Hernández MD Primary Care Provider [phone] Reason for Visit * Reason Comments Medication Refill Encounter Details Date Type Department Care Team (Late st Contact Info) Description 12/01/2021 Refill [facility] #2 [place] [address] Anton Hernández MD #[address] [address] Medication Refill Social History Tobacco Use Types [...] encounter Miscellaneous Notes * Telephone Encounter - Porsche Henry RN - 12/01/2021 11:37 AM CDT Refill request too soon. documented in this encounter Plan of Treatment Not on file documented as of this encounter Visit Diagnoses Not on filedocumented in this encounter Additional Health Concerns Assessment Noted Time PHQ-9 Depression Total Score: 0 08/06/19 4:17 PM CDT documented as of this encounter Care Teams Casual Shoe Inspector Relationship Specialty Start Date End Date Anton Hernández MD #2 [facility] [address] [place] [address] PCP - General Family Medicine 10/10/18 05/31/22 Anton Minor MD 4 [facility] [address] [place] [address] Neurologist Neurology 08/16/18 Vijay Dave MD 4 [facility] [address] [place] [address] Card Grinder Helper Pulmonary Disease 08/16/18 Jordan Richards III, MD 4 [facility] [address] [place] [address] Surgeon Plastic Surgery 08/16/18 documented as of this encounter
--- OUTSIDE RECORDS SUMMARY | 2025-03-06 12:07 | XMS_ITS | Encounter Summary ---
Author Organization [facility] Address [address] [place] [address] Phone Care Team Providers Care Signals Intelligence Superintendent Name Role Phone Anton Minor MD Unavailable [phone] Vijay Dave MD Unavailable Unavailable Maurice MEEKS MD, Jordan Chapa Unavailable [phone] Anton Hernández MD Primary Care Provider [phone] Reason for Visit * Reason Comments Medication Refill Encounter Details Date Type Department Care Team (Late st Contact Info) Description 11/13/2020 Refill [facility] [place] #2 [place] [address] Anton Hernández MD #[address] [address] Medication Refill Social History Tobacco Use Types [...] [place] 05/15/20 Office Visit Anton Hernández MD [facility] 01/10/20 Office Visit Anton Hernández MD [facility] Darshan Showing recent visits within past 365 [...] Med Name: ALBUTEROL HFA 90 MCG INHALER (AL] 17 g 3 Sig: INHALE TWO PUFFS BY MOUTH EVERY SIX HOURS NEEDED FOR WHEEZING Short Acting Inhaled Beta-Agonists Protocol Passed - 11/14/2020 10:44 AM Passed - Visit with relevant provider in past 12 months or upcoming 90 days Recent Visits Date Type Provider Dept 08/04/20 Office Visit Anton Hernández MD [facility] 05/15/20 Office Visit Anton Hernández MD [facility] 01/10/20 Office Visit [facility] Darshan Showing recent visits within past 365 [...] documented as of this encounter Care Teams Signals Intelligence Superintendent Relationship Specialty Start Date End Date Anton Hernández MD #[address] [place] [address] PCP - General Family Medicine 10/10/18 05/31/22 Anton Minor MD [address] [facility] [address] [place] [address] Neurologist Neurology 08/16/18 Vijay Dave MD [address] [facility] [address] [place] [address] Core Measures Abstractor Pulmonary Disease 08/16/18 Jordan Richards III, MD [address] [facility] [address] [place] [address] Surgeon Plastic Surgery 08/16/18 documented as of this encounter
--- OUTSIDE RECORDS SUMMARY | 2025-03-06 12:07 | XMS_ITS | Encounter Summary ---
Author Organization [facility] Address [address] [place] [address] Phone Care Team Providers Care Construction Project Mgr Name Role Phone Anton Minor MD Unavailable [phone] Vijay Dave MD Unavailable Unavailable Maurice MEEKS MD, Jordan Chapa Unavailable [phone] Anton Hernández MD Primary Care Provider Nancy Soto RN Unavailable UnavailUzma Hodge RN Unavailable Unavailable Reason for Visit * Reason Comments Medication Refill Encounter Details Date Type Department Care Team (Late st Contact Info) Description 05/16/2020 Refill [facility] #2 [place] [address] Anton Hernández MD #[address] [address] Medication Refill Social History Tobacco Use Types [...] COVID-19? No / Unsure 05/15/2020 2:16 PM ASSOCIATE MEDIA PLANNER documented as of this encounter Plan of Treatment Not on file documented as of this encounter Visit Diagnoses Not on filedocumented in this encounter Additional Health Concerns Assessment Noted Time PHQ-9 Depression Total Score: 0 05/15/19 2:28 PM ASSOCIATE MEDIA PLANNER documented as of this encounter Care Teams Construction Project Mgr Relationship Specialty Start Date End Date Anton Hernández MD #2 [facility] [address] [place] [address] PCP - General Family Medicine 10/10/18 05/31/22 Anton Minor MD [address] [facility] [address] [place] [address] Neurologist Neurology 08/16/18 Vijay Dave MD [address] [facility] [address] [place] [address] Men'S Golf Coach Pulmonary Disease 08/16/18 Jordan Richards III, MD [address] [facility] [address] [place] [address] Surgeon Plastic Surgery 08/16/18 Nancy Soto, [place] Report Clerk 02/02/19 10/05/20 Uzma Ashby RN [place] Report Clerk 10/06/20 11/04/20 documented as of this encounter
--- OUTSIDE RECORDS SUMMARY | 2025-03-06 12:07 | XMS_ITS | Clinical Summary ---
Author Organization [facility] Address [address] [place] [address] Phone Care Team Providers Care Application Support Name Role Phone Anton Minor MD Unavailable [phone] Vijay Dave MD Unavailable Unavailable Maurice MEEKS MD, Jordan Chaap Unavailable [phone] Allergies No known active allergies Medications Aspirin [...] Pf, 3 0 Mcg/0.3 Ml Dose, Ruddy-sucrose ([employer] [place] [employer]) 08/28/2021 Influenza Vaccine 01/11/2018,02/09/2017 [...] Virus (HCV) Screening 1960 TdaP Immunization 1960 Varicella Immunization (1 of 2 - 13+ 2-dose series) 11/24/1971 Cologuard 11/24/2003 Colonoscopy 11/24/2003 Colorectal Cancer Screening 11/24/2003 Immunochemical Fecal Occult Blood 11/24/2003 Respiratory Syncytial Virus (RSV) Immunization (Adult) (1 - Risk 50-74 years 1-dose series) 2008 Zoster Immunization (1 of 2) 2008 Pneumococcal Immunization (50+ years) (2 of 2 [...] patient's age to complete this topic Insurance Advance Directives Documents on File Type Date Recorded Patient Physics Technician Expl anation Advance Care Planning Discussion 05/15/2020 3:20 PM ACP-Cover Sheet POLST/POST/NE DNR 05/15/2020 3:19 PM ACP-Di scussion Record 05/15/20 POLST/POST/NE DNR 05/15/2020 3:19 PM POA-HC 05/15/20 Care Teams Application Support Relationship Specialty Start Date End Date Anton Minor MD [address] [place] [address] [address] [place] [address] Neurologist Neurology 08/16/18 Vijay Dave MD [address] [place] [address] [address] [place] [address] Baggage Handler Pulmonary Disease 08/16/18 Jordan Richards III, MD [address] [place] [address] [address] [place] [address] Surgeon Plastic Surgery 08/16/18
[2025-03-06 12:16] LABS: MALB Creatinine Ratio 38.8 mg/g (0-30)
[2025-03-06 12:21] LABS: Chloride 102 mmol/L (98-107); Potassium 4.7 mmol/L (3.4-5.0); Sodium 143 mmol/L (137-145)
[2025-03-06 12:22] LABS: Alanine Aminotransferase 29 U/L (6-50); Albumin Level 4.7 g/dL (3.5-5.1); Alkaline Phosphatase 74 U/L (38-126); Anion Gap 8 mmol/L (4-12); Aspartate Amino Transferase 36 U/L (17-59); Bilirubin,Total 0.3 mg/dL (0.2-1.3); Blood Urea Nitrogen 17 mg/dL (9-20); Calcium 9.5 mg/dL (8.4-10.2); Carbon Dioxide 33 mmol/L (22-30); Estimated Glomerular Filt Rate > 60; Glucose 106 mg/dL (65-110); Osmolality Calculated 297 mOsm/kg (285-295); Total Protein 7.3 g/dL (6.3-8.2)
[2025-03-06 12:52] LABS: Thyroid Stimulating Hormone 1.330 uIU/mL (0.465-4.680)
[2025-03-07 14:01] LABS: Immature Granulocyte Percent A 0.3 % (0.0-0.0); Lymphocytes Absolute Auto 2.81 K/mm3 (1.10-4.50); Nucleated Red Blood Cells Absolute Auto 0.00 K/mm3 (0.00-0.00); Nucleated Red Blood Cells Perc 0.0 % (0-0.0)
== END 2025-03-06 11:26 | disposition home or self-care (01) ==
LOC: CHSLAB 11:27
PROVIDERS: PCP Family Medicine; Visit Provider Family Medicine
DX: I10 Essential (primary) hypertension (principal)
CPT/HCPCS: 36415; 80053; 82043; 84443; 85025; 85027

== ENCOUNTER 2025-03-19 13:31 | Outpatient (CLI) | payer MEDICARE, SELFPAY ==
--- NOTE | 2025-03-19 13:33 | ECHO_ITS ---
Patient Info Name: Pratik Alvarez Age: 64 years : 1960 Gender: Male Ht: 72 in Wt: 163 lbs BSA: 1.94 m2 HR: 75 bpm BP: 155 / 102 mmHg Technical Quality: Good Exam Date: 03/19/2025 2:10 PM Patient Status: O Admit Date: 03/19/2025 Exam Type: CA echo doppler color flow Complete two-dimensional, color flow and Doppler transthoracic echocardiogram is performed. Supervisor Fruit Grading: Eder Varela III Attending Provider: Scott Patel DO Summary 1. Complete two-dimensional, color flow and Doppler transthoracic echocardiogram is performed. 2. Left ventricular chamber dimension is normal. 3. Left ventricular systolic function is normal, estimated at 65-70. 4. There is mild concentric increased left ventricular wall thickness. 5. The left ventricular diastolic function is grade I diastolic dysfunction. 6. E/e' 11 is mildly elevated. 7. Left atrial chamber dimension is mildly enlarged. 8. There is mild aortic valve sclerosis. 9. There is trace aortic valve regurgitation. 10. The mitral valve has a mildly calcified annulus. 11. There is mild mitral valve regurgitation. 12. The aortic root size at the sinus of Valsalva is borderline dilated at 4.0 cm. Left Ventricle E/e' 11 is mildly elevated. Left ventricular chamber dimension is normal. Left ventricular systolic function is normal, estimated at 65-70. There is mild concentric increased left ventricular wall thickness. The left ventricular diastolic function is grade I diastolic dysfunction. Right Ventricle Right ventricular chamber dimension is normal. Right ventricular systolic function is normal and with normal TAPSE 2.6 cm. Left Atria Left atrial chamber dimension is mildly enlarged. Right Atria Right atrial chamber dimension is normal. Aortic Valve The aortic valve is trileaflet. There is mild aortic valve sclerosis. There is no aortic valve stenosis. There is trace aortic valve regurgitation. Pulmonic Valve There is no pulmonic regurgitation. Mitral Valve The mitral valve has a mildly calcified annulus. There is no mitral valve stenosis. There is mild mitral valve regurgitation. Tricuspid Valve There is no tricuspid valve regurgitation. Pericardium/Pleural There is no pericardial effusion. Inferior Vena Cava Normal inferior vena cava with >50% collapse upon inspiration consistent with normal right atrial pressure, 5 mmHg. Aorta The aortic root size at the sinus of Valsalva is borderline dilated at 4.0 cm. Left Ventricular Outflow Tract Name Value Normal LVOT 2D LVOT Diameter 2.1 cm LVOT Doppler LVOT Peak Velocity 144 cm/s LVOT Peak Gradient 8 mmHg LVOT Mean Gradient 3 mmHg LVOT VTI 22 cm LVOT VTI/AV VTI Ratio 0.8 LVOT Stroke Volume 74 ml LVOT CO 5.7 l/min LVOT CI 2.9 l/min/m2 Pulmonic Valve Name Value Normal PV Doppler PV Peak Velocity 131 cm/s PV Peak Gradient 7 mmHg PV Mean Gradient 3 mmHg Mitral Valve Name Value Normal MV Doppler MV Peak Gradient 5 mmHg MV Mean Gradient 2 mmHg MV Area (Cont Eq VTI) 2.4 cm2 MV Diastolic Function MV E Peak Velocity 99 cm/s MV A Peak Velocity 105 cm/s MV E/A 0.9 MV Decel Time (PW) 297 ms MV Annular TDI MV E/e' (Septal) 11.9 MV E/e' (Lateral) 11.8 MV E/e' (Average) 11.9 Tricuspid Valve Name Value Normal Estimated PAP/RSVP RA Pressure 5 mmHg <=5 TV Annular TDI TV Lateral Marla s' Velocity 23.8 cm/s >=9.5 Aortic Valve Name Value Normal AV Doppler AV Peak Velocity 176 cm/s AV Peak Gradient 12 mmHg AV Mean Gradient 6 mmHg AV VTI 29 cm AV Area (Cont Eq VTI) 2.6 cm2 >=3.0 AV Area (Cont Eq Kelton) 2.7 cm2 AV DI (Kelton) 0.82 AV Regurgitation 2D LVOT Area 3.4 cm2 Ventricles Name Value Normal LV Dimensions 2D/MM IVS Diastolic Thickness (2D) 1.1 cm 0.6-1.0 LVID Diastole (2D) 4.3 cm 4.2-5.8 LVIW Diastolic Thickness (2D) 1.4 cm 0.6-1.0 LVID Systole (2D) 2.6 cm 2.5-4.0 LVOT Diameter 2.1 cm LV Mass (2D Cubed) 192.70 g 88.00-224.00 LV Mass Index (2D Cubed) 100 g/m2 49-115 Relative Wall Thickness (2D) 0.64 <=0.42 LV Fractional Shortening/Ejection Fraction 2D/MM LV Fractional Shortening (2D) 39 % 25-43 LV EF (2D Teichholz) 70 % LV Diastolic Volume (4C MOD) 84 ml LV EF (4C MOD) 66 % LV Diastolic Volume (2C MOD) 73 ml LV EF (2C MOD) 75 % LV Diastolic Volume (BP MOD) 79 ml 62-150 LV Diastolic Volume Index (BP MOD) 41 ml/m2 34-74 LV Systolic Volume (BP MOD) 23 ml 21-61 LV Systolic Volume Index (BP MOD) 12 ml/m2 11-31 LV EF (BP MOD) 71 % 52-72 LV Diastolic Length (4C) 7.8 cm LV Systolic Length (4C) 6.1 cm LV Stroke Volume (4C MOD) 56 ml Atria Name Value Normal LA Dimensions LA Volume (4C A-L) 54 ml LA Volume (BP A-L) 69 ml RA Dimensions RA Systolic Major [place] Length (4C) 5.9 cm 2.1-2.7 RA Area (4C) 17.1 cm2 <=18.0 Report Signatures
== END 2025-03-19 13:32 | disposition home or self-care (01) ==
LOC: CHSIMG 13:31
PROVIDERS: PCP Family Medicine; Visit Provider Internal Medicine Cardiovascular Disease
DX: R06.09 Other forms of dyspnea (principal); I34.0 Nonrheumatic mitral (valve) insufficiency; I35.8 Other nonrheumatic aortic valve disorders; I51.9 Heart disease, unspecified
CPT/HCPCS: 93306

== ENCOUNTER 2025-03-20 12:31 | Outpatient (CLI) | payer MEDICARE, SELFPAY ==
--- OUTSIDE RECORDS SUMMARY | 2025-03-20 16:22 | XMS_ITS | Encounter Summary ---
Author Organization [facility] Address [address] [place] [address] Phone Care Team Providers Care Job Training Specialist Name Role Phone Anton Minor MD Unavailable [phone] Vijay Dave MD Unavailable Unavailable Maurice MEEKS MD, Jordan Chapa Unavailable [phone] Anton Hernández MD Primary Care Provider Nancy Soto RN Unavailable UnavailUzma Hodge RN Unavailable Unavailable Reason for Visit * Reason Comments Medication Refill Encounter Details Date Type Department Care Team (Late st Contact Info) Description 06/20/2020 Refill [facility] #2 [place] [address] Anton Hernández MD #[address] [address] Medication Refill Social History Tobacco Use Types [...] Visits 1 month ago Centrilobular emphysema (HCC) [facility] Family [facility] - Anton Bush MD 5 months ago Neck pain [facility] Anton Bush MD 8 months ago Neck pain [facility] Anton Bush MD 9 months ago Pulmonary emphysema, unspecified emphysema type (HCC) [facility] Anton Grigsby MD 1 year ago Benign essential HTN [facility] Anton Grigsby MD Upcoming Appointments Future Appointments In 2 days Nancy Soto RN [facility] HealthCare Receiving Associate Store Management [place] Arrive at: [facility] FAMILY MEDICINE In 1 month Anton Hernández MD [facility] Family [facility] Darshan [facility] REAL ESTATE PHOTOGRAPHER - Recent and Past Visits Recent Visits [...] Provider Dept 07/31/20 Appointment Anton Hernández MD [facility] Darshan Showing future appointments within next [...] Depression Total Score: 0 05/15/19 2:28 PM GENERAL LITHOGRAPHIC WORKER documented as of this encounter Care Teams Job Training Specialist Relationship Specialty Start Date End Date Anton Hernández MD #2 [facility] [address] [place] [address] PCP - General Family Medicine 10/10/18 05/31/22 Anton Minor MD [address] [facility] [address] [place] [address] Neurologist Neurology 08/16/18 Vijay Dave MD [address] [facility] [address] [place] [address] Lockstitch Tunnel Elastic Operator Pulmonary Disease 08/16/18 Jordan Richards III, MD [address] [facility] [address] [place] [address] Surgeon Plastic Surgery 08/16/18 Nancy Soto, [place] Port Crane Operator 02/02/19 10/05/20 Uzma Ashby RN [place] Port Crane Operator 10/06/20 11/04/20 documented as of this encounter
--- OUTSIDE RECORDS SUMMARY | 2025-03-20 16:22 | XMS_ITS | Encounter Summary ---
Author Organization [facility] Address [address] [place] [address] Phone Care Team Providers Care Instructional Specialist Name Role Phone Anton Minor MD Unavailable [phone] Vijay Dave MD Unavailable Unavailable Maurice MEEKS MD, Jordan Chapa Unavailable [phone] Anton Hernández MD Primary Care Provider [phone] Nancy Soto RN Unavailable UnavailUzma Hodge RN Unavailable Unavailable Reason for Visit * Reason Onset Date Comments multiple questions and fyis 06/05/2020 Encounter Details Date Type Department Care Team (Late st Contact Info) Description 06/05/2020 Telephone [facility] [address] [place] [address] Anton Hernández MD [address] [address] multiple questions and fyis Social [...] COVID-19? No / Unsure 05/15/2020 2:16 PM CERTIFIED PERSONAL TRAINER documented as of this encounter Miscellaneous Notes * Telephone Encounter - Jennifer Aguilar RN - 06/06/2020 2:00 PM CERTIFIED PERSONAL TRAINER Pt called back at this time. He [...] made for July 31, 2020 at 1000. IFIED PERSONAL TRAINER * Telephone Encounter - Niki Heatr RN - 06/06/2020 12:39 PM CERTIFIED PERSONAL TRAINER Call placed to patient. Message left to call office back. IFIED PERSONAL TRAINER * Telephone Encounter - Anton Hernández MD - 06/05/2020 3:36 PM CST You can take both mj and vicodin together as long as the amounts are reasonable You need office visit in 3 three months IFIED PERSONAL TRAINER * Telephone Encounter - Carina Meuller RN - 06/05/2020 3:01 PM CST What are the affects of marijuana and Vicodin taken together? When does he need to see you again? Pt was not able to do the mri test today at [facility] . His arms clenched up tight against him. Dr Bartlett has given him diazepam 10 mg to take one hour before the next mri test. Pt states he does not think it will help. Pt will be seeing a plastic surgeon concerning the bumps on his head tomorrow. Has first covid shot scheduled for June 13. IFIED PERSONAL TRAINER documented in this encounter Plan of Treatment Not on file documented as of this encounter Visit Diagnoses Not on filedocumented in this encounter Additional Health Concerns Assessment Noted Time PHQ-9 Depression Total Score: 0 05/15/19 2:28 PM CERTIFIED PERSONAL TRAINER documented as of this encounter Care Teams Instructional Specialist Relationship Specialty Start Date End Date Anton Hernández MD #[address] [address] PCP - General Family Medicine 10/10/18 05/31/22 Anton Minor MD [address] [facility] [address] [place] [address] Neurologist Neurology 08/16/18 Vijay Dave MD [address] [facility] [address] [place] [address] Adult Specialist Pulmonary Disease 08/16/18 Jordan Richards III, MD [address] [facility] [address] [place] [address] Surgeon Plastic Surgery 08/16/18 Nancy Soto, OSM[place] Tow Truck Operator 02/02/19 10/05/20 Uzma Ashby RN [place] Tow Truck Operator 10/06/20 11/04/20 documented as of this encounter
--- OUTSIDE RECORDS SUMMARY | 2025-03-20 16:22 | XMS_ITS | Encounter Summary ---
Author Organization [facility] Address [address] [place] [address] Phone Care Team Providers Care Ornamental Ironworking Supervisor Name Role Phone Anton Minor MD Unavailable [phone] Vijay Dave MD Unavailable Unavailable Maurice MEEKS MD, Jordan Chapa Unavailable [phone] Anton Hernández MD Primary Care Provider Nancy Soto RN Unavailable UnavailUzma Hodge RN Unavailable Unavailable Reason for Visit * Reason Comments Medication Refill Encounter Details Date Type Department Care Team (Late st Contact Info) Description 09/30/2020 Refill [facility] #[address] [place] [address] Anton Hernández MD #[address] [address] Medication Refill Social History Tobacco Use Types [...] documented as of this encounter Care Teams Ornamental Ironworking Supervisor Relationship Specialty Start Date End Date Anton Hernández MD #2 [facility] [address] [place] [address] PCP - General Family Medicine 10/10/18 05/31/22 Anton Minor MD 4 [facility] [address] [place] [address] Neurologist Neurology 08/16/18 Vijay Dave MD 4 [facility] [address] [place] [address] Marketing Research Coordinator Pulmonary Disease 08/16/18 Jordan Richards III, MD 4 [facility] [address] [place] [address] Surgeon Plastic Surgery 08/16/18 Nancy Soto, OSMANY [place] Inside Polisher 02/02/19 10/05/20 Uzma Ashby RN [place] Inside Polisher 10/06/20 11/04/20 documented as of this encounter
--- OUTSIDE RECORDS SUMMARY | 2025-03-20 16:22 | XMS_ITS | Clinical Summary ---
Author Organization [facility] Address [address] [place] [address] Care Team Providers Care Meat Stringer Name Role Phone Anton Hernández MD Primary Care Provider Source Comments [facility],non-owned Affiliates and Associated Physician Practices is amultiple site organization consisting of ambulatory clinics and hospital sitesin [place], [place], [place] and [place]. This disclosure is being madepursuant to the Care Everywhere program and may not contain all information available regarding this patient. Last updated 17.[employer] [facility] Allergies No known active allergies Medications * [...] patient's age to complete this topic Insurance [facility] [place] [address] [place] [address] [facility] Care Teams Meat Stringer Relationship Specialty Start Date End Date Anton Hernández MD [phone] (work) PCP - General 10/02/18
--- OUTSIDE RECORDS SUMMARY | 2025-03-20 16:22 | XMS_ITS | Encounter Summary ---
Author Organization [facility] Address [address] [place] [address] [place] [address] Care Team Providers Care Tableau Developer Name Role Phone Anton Hernández MD Primary Care Provider [phone] Reason for Visit * Reason Onset Date Comments Future Appointment 10/03/2018 Encounter Details Date Type Department Care Team (Late st Contact Info) Description 10/03/2018 Telephone [facility] [address] [place] [address] Melba Dover MD [address] [place] [address] Future Appointment Social History Tobacco Use Types [...] to someone in the office. Thanks Delia [facility] Nuclear Physics Professor documented in this encounter Plan of Treatment Not on file documented as of this encounter Visit Diagnoses Not on filedocumented in this encounter Care Teams Tableau Developer Relationship Specialty Start Date End Date Anton Hernández MD PCP - General 10/02/18 documented as of this encounter
--- OUTSIDE RECORDS SUMMARY | 2025-03-20 16:22 | XMS_ITS | Encounter Summary ---
Author Organization [facility] Address [address] [place] [address] [place] [address] Care Team Providers Care Mechanical Research Engineer Name Role Phone Anton Hernández MD Primary Care Provider [phone] Encounter Details Date Type Department Care Team (Late st Contact Info) Description 01/03/2019 Telephone [facility] [address] [place] [address] Melba Dover MD [address] [id number] Social History Tobacco Use Types Packs/Day Years [...] requesting a Med refill. Drug type:FLEXORIL, XANIX Pharmacy:[facility] [place], [place] Patient call back number: [phone] . Following Guideline rules, we informed the patient clinic will contact them within 24 business hours. documented in this encounter Plan of Treatment Not on file documented as of this encounter Visit Diagnoses Not on filedocumented in this encounter Care Teams Mechanical Research Engineer Relationship Specialty Start Date End Date Anton Hernández MD PCP - General 10/02/18 documented as of this encounter
--- OUTSIDE RECORDS SUMMARY | 2025-03-20 16:22 | XMS_ITS | Clinical Summary ---
Author Organization [facility] Address [address] [place] [address] Care Team Providers Care Group Account Director Name Role Phone Anton Hernández MD Primary Care Provider [phone] Allergies No known active allergies Medications amLODIPine [...] 04/03/2018 Assessment & Plan (04/03/2018 5:47 PM CERTIFIED NURSE AIDE): Chest x-ray on March revealed: 1. Hyperinflation, 2. A few small opacities are noted, which may be primarily due to vessels en face 3. Small opacity left lower lung field possible nipple shadow. Chest x-ray with nipple markers was ordered. Allergic rhinitis with postnasal drip 04/03/2018 Assessment & Plan (04/03/2018 5:50 PM CERTIFIED NURSE AIDE): The patient has all clinical features of allergic rhinitis including chronic postnasal drip and nasal congestion. The patient was started on fluticasone nasal spray. Mild persistent asthma without complication 02/09 Assessment & Plan (04/03/2018 5:45 PM CERTIFIED NURSE AIDE): Pulmonary function testing on March 27, 2018 has shown moderate obstructive lung disease with significant response to bronchodilator. The patient was started on combination of Breo Ellipta 100 mcg 1 puff once a day and Spiriva Respimat 1.25 mcg 2 puffs once a day. He was also advised to continue with albuterol inhaler 2 puffs as needed. Assessment & Plan (02/27/2018 8:29 PM CERTIFIED NURSE AIDE): The patient was diagnosed with asthma at [facility] code enforcement officer and since then he has been on inhaled bronchodilators. He complains of exertional shortness of breath. PFT, 6 min walk test, CBC and BMP were ordered. He was advised to continue with albuterol inhaler 2 puffs as needed. His inhaler technique was reviewed and correct technique was clearly explained and demonstrated. Centrilobular emphysema 02/27/2018 Assessment & Plan (04/03/2018 5:45 PM CERTIFIED NURSE AIDE): Pulmonary function testing on March 27, 2018 [...] shot. Assessment & Plan (02/27/2018 8:35 PM CERTIFIED NURSE AIDE): The patient has 25 pack year smoking [...] (09/15/2017): Added automatically from request for surgery [id number] Scalp mass 01/12/2017 Numbness and tingling of both legs 11/29/2016 Intractable chronic migraine without aura and without status migrainosus 10/05/2016 Bilateral occipital neuralgia 10/05/2016 Resolved Problems Problem Noted Date Diagnosed Date Resolved Date BMI 22.0-22.9, adult 02/27/2018 019 Assessment & Plan (04/03/2018 5:48 PM CERTIFIED NURSE AIDE): BMI is 22.42 kg/m2. The patient denies any significant weight loss over the past 10 months. Assessment & Plan (02/27/2018 8:33 PM CERTIFIED NURSE AIDE): BMI is 22.89 kg/m2. No history of weight loss over the past 6 months. Immunizations Immunization Administration Dates Next Due Influenza, Quadrivalent, Spl it, Preservative Free, Intramuscular 01/11/2018 Influenza, Unspecified 02/09/2017 [employer] ([employer]) SARS-CoV-2 Vaccination 09/09/2020 Medical History Medical [...] on file Legal Sex Male 7:53 AM CERTIFIED NURSE AIDE Gender Identity Not on file Sexual Orientation [...] Plan of Treatment Not on file Insurance IDVT [facility] IDPA Care Teams Group Account Director Relationship Specialty Start Date End Date Anton Hernández MD PCP - General Family Medicine 06/12/20
--- OUTSIDE RECORDS SUMMARY | 2025-03-20 16:22 | XMS_ITS | Encounter Summary ---
Author Organization [facility] Address [facility] [facility] [place] [address] Care Team Providers Care Frame Hand Name Role Phone Anton Hernández MD Primary Care Provider [phone] Encounter Details Date Type Department Care Team (Late st Contact Info) Description 01/03/2019 Telephone [facility] [address] [place] [address] Melba Dover MD [address] [place] [phone] Social History Tobacco Use Types Packs/Day Years [...] TALK TO CLINIC Patient Call Back number: [phone] documented in this encounter Plan of Treatment Not on file documented as of this encounter Visit Diagnoses Not on filedocumented in this encounter Care Teams Frame Hand Relationship Specialty Start Date End Date Anton Hernández MD PCP - General 10/02/18 documented as of this encounter
--- OUTSIDE RECORDS SUMMARY | 2025-03-20 16:22 | XMS_ITS | Encounter Summary ---
Author Organization [facility] Address [address] [place] [address] Phone Care Team Providers Care Butcher Helper Name Role Phone Anton Minor MD Unavailable [phone] Vijay Dave MD Unavailable Unavailable Maurice MEEKS MD, Jordan Chapa Unavailable [phone] Anton Hernández MD Primary Care Provider [phone] Reason for Visit * Reason Comments Medication Refill Encounter Details Date Type Department Care Team (Late st Contact Info) Description 11/13/2020 Refill [facility] - [place] [address] [place] [address] Anton Hernández MD #[address] [address] Medication Refill Social History Tobacco Use Types [...] [place] 01/10/20 Office Visit Anton Hernández MD [facility] [place] Showing recent visits within past 365 [...] Med Name: ALBUTEROL HFA 90 MCG INHALER (IL] 17 g 3 Sig: INHALE TWO PUFFS [...] [place] 01/10/20 Office Visit Anton Hern[facility]dez MD [facility] [place] Showing recent visits within past 365 [...] documented as of this encounter Care Teams Butcher Helper Relationship Specialty Start Date End Date Anton Hernández MD [address] [place] [address] PCP - General Family Medicine 10/10/18 05/31/22 Anton Minor MD 4 [facility] [address] [place] [address] Neurologist Neurology 08/16/18 Vijay Dave MD 4 [facility] [address] [place] [address] Personal Computer Network Engineer Pulmonary Disease 08/16/18 Jordan Richards III, MD 4 [facility] [address] [place] [address] Surgeon Plastic Surgery 08/16/18 documented as of this encounter
--- OUTSIDE RECORDS SUMMARY | 2025-03-20 16:22 | XMS_ITS | Encounter Summary ---
Author Organization [facility] Address [address] [place] [address] Phone Care Team Providers Care Heavy Duty Mechanic Farm Equipment Name Role Phone Anton Minor MD Unavailable [phone] Vijay Dave MD Unavailable Unavailable Maurice MEEKS MD, Jordan Chapa Unavailable [phone] Anton Hernández MD Primary Care Provider [phone] Nancy Soot RN Unavailable UnavailUzma Hodge RN Unavailable Unavailable Reason for Visit * Reason Comments Medication Refill Encounter Details Date Type Department Care Team (Late st Contact Info) Description 05/16/2020 Refill [facility] #[address] [place] [address] Anton Hernández MD #[address] [address] Medication Refill Social History Tobacco Use Types [...] COVID-19? No / Unsure 05/15/2020 2:16 PM TERMITE EXTERMINATOR documented as of this encounter Plan of Treatment Not on file documented as of this encounter Visit Diagnoses Not on filedocumented in this encounter Additional Health Concerns Assessment Noted Time PHQ-9 Depression Total Score: 0 05/15/19 2:28 PM TERMITE EXTERMINATOR documented as of this encounter Care Teams Heavy Duty Mechanic Farm Equipment Relationship Specialty Start Date End Date Anton Hernández MD #2 [facility] [address] [place] [address] PCP - General Family Medicine 10/10/18 05/31/22 Anton Minor MD [address] [facility] [address] [place] [address] Neurologist Neurology 08/16/18 Vijay Dave MD [address] [facility] [address] [place] [address] Federal Agent Pulmonary Disease 08/16/18 Jordan Richards III, MD [address] [facility] [address] [place] [address] Surgeon Plastic Surgery 08/16/18 Nancy Soto, OSMANY [place] Accordion Repairer 02/02/19 10/05/20 Uzma Ashby RN [place] Accordion Repairer 10/06/20 11/04/20 documented as of this encounter
--- OUTSIDE RECORDS SUMMARY | 2025-03-20 16:22 | XMS_ITS | Encounter Summary ---
Author Organization [facility] Address [facility] [facility] [place] [address] Care Team Providers Care Employee Communications Specialist Name Role Phone Anton Hernández MD Primary Care Provider [phone] Encounter Details Date Type Department Care Team (Late st Contact Info) Description 01/03/2019 Telephone [facility] [address] [place] [address] Melba Dover MD [address] [place] [address] Social History Tobacco Use Types Packs/Day Years [...] a Med refill. Drug type:FLEXIROL & XANAX Pharmacy:[facility] Patient call back number: [phone] . Following Guideline rules, we informed the patient clinic will contact them within 24 business hours. documented in this encounter Plan of Treatment Not on file documented as of this encounter Visit Diagnoses Not on filedocumented in this encounter Care Teams Employee Communications Specialist Relationship Specialty Start Date End Date Anton Hernández MD PCP - General 10/02/18 documented as of this encounter
--- OUTSIDE RECORDS SUMMARY | 2025-03-20 16:22 | XMS_ITS | Encounter Summary ---
Author Organization [facility] Address [address] [place] [address] Phone Care Team Providers Care Driller Brake Lining Name Role Phone Anton Minor MD Unavailable [phone] Vijay Dave MD Unavailable Unavailable Maurice MEEKS MD, Jordan Chapa Unavailable [phone] Anton Hernández MD Primary Care Provider [phone] Nancy Soto RN Unavailable UnavailUzma Hodge RN Unavailable Unavailable Reason for Visit * Reason Comments Medication Refill Encounter Details Date Type Department Care Team (Late st Contact Info) Description 05/02/2020 Refill [facility] #2 [place] [address] Anton Hernández MD #[address] [address] Medication Refill Social History Tobacco Use Types [...] COVID-19? No / Unsure 04/16/2020 8:33 AM GIFT CONSULTANT documented as of this encounter Functional Status documented as of this encounter Mental Status * Question Answer Entry Date Author Has the patient fallen twice in the past year without injury or once in the past year with injury? Yes 05/05/2020 3:00 PM GIFT CONSULTANT Razia Soto RN Does the patient report or d o you observe difficulty in gait or balance? No 05/05/2020 3:00 PM GIFT CONSULTANT Razia Soto RN documented in this encounter Miscellaneous Notes * Telephone Encounter - Pauline Henderson RN - 05/02/2020 1:53 PM CST Refused by Dr Hernández today 05/02/20 - Patient has requested refill too soon. This request being denied based on pcp response to previous request. Duplicate CONSULTANT * Telephone Encounter - Pauline Henderson RN [...] Information ?? HYDROcodone-acetaminophen (NORCO) 5-325 MG Tablet [[id number]] 1223 Status: Pending Ordering user: Anton Hernández MD 05/02/20 1223 Authorized by: Anton Hernández MD PRN reasons: Moderate or more severe pain Frequency: Q8H PRN 05/02/20 - Until Discontinued Pended by: Pauline Henderson RN 05/02/20 1215 [facility]acy [facility] [address] CONSULTANT documented in this encounter Plan of Treatment Not on file documented as of this encounter Visit Diagnoses Not on filedocumented in this encounter Additional Health Concerns Assessment Noted Time PHQ-9 Depression Total Score: 0 05/04/19 9:30 AM GIFT CONSULTANT documented as of this encounter Care Teams Driller Brake Lining Relationship Specialty Start Date End Date Anton Hernández MD #[address] [address] PCP - General Family Medicine 10/10/18 05/31/22 Anton Minor MD 4 [facility] [address] [place] [address] Neurologist Neurology 08/16/18 Vijay Dave MD 4 [facility] [address] [place] [address] Claims Assistant Pulmonary Disease 08/16/18 Jordan Richards III, MD 4 [facility] [address] [place] [address] Surgeon Plastic Surgery 08/16/18 Nancy Soto, [place]SM[place] Service Administrator 02/02/19 10/05/20 Uzma Ashby RN [place] Service Administrator 10/06/20 11/04/20 documented as of this encounter
--- OUTSIDE RECORDS SUMMARY | 2025-03-20 16:23 | XMS_ITS | Encounter Summary ---
Author Organization [facility] Address [address] [place] [address] Phone Care Team Providers Care Diamond Powder Technician Name Role Phone Anton Minor MD Unavailable [phone] Vijay Dave MD Unavailable Unavailable Maurice MEEKS MD, Jordan Najeraew Unavailable [phone] Anton Hernández MD Primary Care Provider [phone] Reason for Visit * Reason Comments Medication Refill Encounter Details Date Type Department Care Team (Late st Contact Info) Description 12/01/2021 Refill [facility] #2 [place] [address] Anton Hernández MD #[address] [address] Medication Refill Social History Tobacco Use Types [...] documented as of this encounter Care Teams Diamond Powder Technician Relationship Specialty Start Date End Date Anton Hernández MD #2 [facility] [address] [place] [address] PCP - General Family Medicine 10/10/18 05/31/22 Anton Minor MD [address] [facility] [address] [place] [address] Neurologist Neurology 08/16/18 Vijay Dave MD [address] [facility] [address] [place] [address] Ecological Modeler Pulmonary Disease 08/16/18 Jordan Richards III, MD [address] [facility] [address] [place] [address] Surgeon Plastic Surgery 08/16/18 documented as of this encounter
--- OUTSIDE RECORDS SUMMARY | 2025-03-20 16:23 | XMS_ITS | Clinical Summary ---
Author Organization [facility] Address [address] [place] [address] Phone Care Team Providers Care Insulation Board Head Saw Operator Name Role Phone Anton Minor MD Unavailable [phone] Vijay Dave MD Unavailable Unavailable Maurice MEEKS MD, Jordan Chapa Unavailable [phone] Allergies No known active allergies Medications Aspirin [...] Pf, 3 0 Mcg/0.3 Ml Dose, Ruddy-sucrose (Evirx del valle top) 08/28/2021 Influenza Vaccine 01/11/2018,02/09/2017 [...] complete this topic Human Papillomavirus (HPV) Immunization (No Doses Required) Completed Meningococcal Immunization (ACWY) Aged Out No longer eligible based on patient's age to complete this topic Rotavirus Immunization Aged Out No lo nger eligible based on patient's age to complete this topic Insurance MEDICAID [place] Advance Directives Documents on File Type Date Recorded Patient Macadam Raker Expl anation Advance Care Planning Discussion 05/15/2020 3:20 PM ACP-Cover Sheet POLST/POST/MD DNR 05/15/2020 3:19 PM ACP-Di scussion Record 05/15/20 POLST/POST/MD DNR 05/15/2020 3:19 PM POA-HC 05/15/20 Care Teams Insulation Board Head Saw Operator Relationship Specialty Start Date End Date Anton Minor MD [address] [place] [address] [address] [place] [address] Neurologist Neurology 08/16/18 Vijay Dave MD [address] [place] [address] [address] [place] [address] Plumber Helper Pulmonary Disease 08/16/18 Jordan Richards III, MD [address] [place] [address] [address] [place] [address] Surgeon Plastic Surgery 08/16/18
== END 2025-03-20 12:32 | disposition home or self-care (01) ==
LOC: CHSCARD 12:32
PROVIDERS: PCP Family Medicine; Visit Provider Family Medicine
DX: R06.00 Dyspnea, unspecified (principal); R94.2 Abnormal results of pulmonary function studies
CPT/HCPCS: 94060; 94726; 94729